=== PATIENT | female | born 1980 | race Caucasian/White ===

== ENCOUNTER → 2017-11-19 09:45 | Outpatient (CLI) | payer OTHER, SELFPAY ==
[2017-11-19 10:53] LABS: Rheumatoid Factor < 10.0 IU/mL (<15)
[2017-11-19 10:58] LABS: Homocysteine 6.6 umol/L (3.2-10.7)
[2017-11-19 11:00] LABS: Vitamin D,25 Hydroxy 16.6 ng/mL (29.95-100.01)
[2017-11-19 11:02] LABS: Hemoglobin A1c 5.6 % (4.2-6.3)
[2017-11-21 16:10] LABS: Albumin 3.7 g/dL (2.9-4.4); Albumin, Ur 14.3 % (.); Alpha-1-Globulin, Ur 5.5 % (.); Alpha-1-Globulins 0.2 g/dL (0.0-0.4); Alpha-2-Globulins 0.8 g/dL (0.4-1.0); Beta Globulin, Ur 29.1 % (.); Cytoplasmic Ab (C-ANCA) <1:20 titer (Neg:<1:20); Gamma Globulin 0.9 g/dL (0.4-1.8); Gamma Globulin, Ur 35.2 % (.); Immunoglobulin A 241 mg/dL (87-352); Immunoglobulin G 765 mg/dL (700-1600); Immunoglobulin M 104 mg/dL (26-217); M-Spike, Ur % Not Observed % (Not Observed); PROEL- TOTAL PROTEIN 6.9 g/dL (6.0-8.5); Total Protein, Ur 4.2 mg/dL (Not Estab.)
[2017-11-22 14:16] LABS: SJOGREN'S Anti-SS-A test < 0.2 AI (0.0-0.9); SJOGREN'S Anti-SS-B test < 0.2 AI (0.0-0.9)
[2017-11-23 11:24] LABS: ANTINUCLEAR ANTIBODIES DIRECT Negative (Negative); Methylmalonic Acid Bld 250 nmol/L (0-378)
[2017-11-23 11:30] LABS: Perinuclear Ab (P-ANCA) <1:20 titer (Neg:<1:20)
== END ==
PROVIDERS: Family Provider Family Medicine; PCP Family Medicine; Visit Provider Psychiatry & Neurology Neurology
DX: E11.40 Type 2 diabetes mellitus with diabetic neuropathy, unspecified (principal); E53.8 Deficiency of other specified B group vitamins
CPT/HCPCS: 36415; 82306; 82784; 83036; 83090; 83921; 84165; 84166; 86038; 86235; 86256; 86334; 86335; 86431

== ENCOUNTER → 2017-11-26 07:47 | Outpatient (CLI) | payer OTHER, SELFPAY ==
--- NOTE | 2017-11-26 10:13 | NEURO_ITS ---
NCS and/or EMG Patient Report Ordering Doctor: Leeann Caban DATE OF SERVICE: 11/26/17 This is a bilateral lower extremity nerve conduction study in the right lower extremity EMG performed on this 37-year-old female with intermittent pain in her entire right leg circumferentially present for approximately 1 year. There is no positional component. The symptoms do not awaken her from sleep and are currently absent. Bilateral lower extremity nerve conduction studies performed demonstrating normal sural sensory responses bilaterally, normal common peroneal motor responses bilaterally and normal tibial motor responses bilaterally. The tibial and common peroneal F-wave responses are symmetrically preserved and the tibial H reflex responses are symmetrically preserved but mildly low amplitude. Right lower extremity needle electromyography is performed. Muscles evaluated included the extensor digitorum brevis, abductor hallucis, medial gastrocnemius , anterior tibialis, vastus lateralis and vastus medialis muscles. All muscles demonstrated normal insertional activity with absence of pathologic spontaneous activity. Motor unit potential recruitment pattern and amplitude was normal in all muscles tested. Impression: This is a normal nerve conduction study of the bilateral lower extremities and EMG of the right lower extremity. H reflex tubes are reduced however this is a nonspecific finding.
== END ==
PROVIDERS: Family Provider Family Medicine; PCP Family Medicine; Visit Provider Psychiatry & Neurology Neurology
DX: G62.9 Polyneuropathy, unspecified (principal); R20.0 Anesthesia of skin
CPT/HCPCS: 95886; 95910

== ENCOUNTER → 2017-11-28 16:50 | Outpatient (CLI) | payer OTHER, SELFPAY ==
--- NOTE | 2017-11-28 17:00 | MRI_ITS ---
STUDY: MRI CERVICAL SPINE WITH AND WITHOUT CONTRAST REASON FOR EXAM: Female, 37 years old. Numbness, pins and needles and itching in bilateral legs x 1 year. Family history of MS. TECHNIQUE: Standardized fat and water weighted pulse sequences were obtained in the sagittal and axial following I.V. administration of 7 ml of Gadavist contrast material. COMPARISON: None FINDINGS: Normal foramen magnum and brainstem-cervical cord junction. Normal craniovertebral junction. Normal anterior atlantoaxial articulation. Normal odontoid process. Normal cervical lordosis. Normal vertebral bodies and posterior osseous elements. C2-3: Normal endplates. Normal disc height, signal and morphology. Normal central canal and intervertebral neural foramina. C3-4: Normal endplates. Normal disc height, signal and morphology. Normal central canal and intervertebral neural foramina. C4-5: Normal endplates. Normal disc height, signal and morphology. Normal central canal and intervertebral neural foramina. C5-6: Normal endplates. Normal disc height, signal and morphology. Normal central canal and intervertebral neural foramina. C6-7: Normal endplates. Normal disc height, signal and morphology. Normal central canal and intervertebral neural foramina. C7-T1: Normal endplates. Normal disc height, signal and morphology. Normal central canal and intervertebral neural foramina. Normal cervical cord. There are enlarged bilateral cervical lymph nodes. MRI/Spine Cervical W/WO Contrast IMPRESSION: Normal unenhanced and enhanced MR examination of the cervical spine. Bilateral neck lymphadenopathy. Electronically Signed: Billy Allen MD at 17:10 EDT Tel , Service support ,
--- NOTE | 2017-11-28 17:30 | MRI_ITS ---
MR Brain WO/W Contrast INDICATION: Abnormal sensation and tingling left side, hyper-reflexia.Numbness, pins and needles and itching in bilateral legs x 1 year. Family history of MS COMPARISON: None TECHNIQUE: Multiplanar multisequence MRI examination of the brain without and with IV contrast. 1.5 mL of Gadavist was given intravenously.. FINDINGS: There is no evidence of restricted diffusion to suggest acute ischemia/infarction. Ventricular system is normal in size and symmetric. Cortical sulci, sylvian fissures, and basal cisterns are well seen. Snow-white matter junction is normal. Midline structures and craniocervical junction are normal. The cerebellopontine angles are normal and symmetric. Supra-and infratentorial brain parenchyma demonstrates normal signal. There is no evidence of parenchymal microhemorrhage, mass effect or midline shift, or abnormal extra-axial collection. After contrast administration, there is no abnormal parenchymal or extra-axial enhancement identified. Flow-voids of the [place] vascularity are well seen. The paranasal sinuses and mastooid air cells are clear. Sagittal FLAIR sequence demonstrates multiple prominent bilateral cervical lymph nodes. MRI/Brain W/WO Contrast IMPRESSION: Normal MRI examination of the brain. Multiple mildly prominent bilateral cervical lymph nodes are incidentally noted, please correlate with physical exam. at [id number] Reported and signed by: Kellie Baez MD Electronically Signed: Kellie Baez MD at 23:56 EDT Tel , Service support ,
== END ==
PROVIDERS: Family Provider Family Medicine; PCP Family Medicine; Visit Provider Psychiatry & Neurology Neurology
DX: R29.2 Abnormal reflex (principal); R20.2 Paresthesia of skin; R29.818 Other symptoms and signs involving the nervous system; Z82.0 Family history of epilepsy and other diseases of the nervous system; R59.0 Localized enlarged lymph nodes
CPT/HCPCS: 70553; 72156; A9585

== ENCOUNTER → 2017-12-02 15:34 | Outpatient (CLI) | payer OTHER, SELFPAY ==
[2017-12-02 18:16] LABS: Absolute Lymphocyte Count 2.39 X10^3/ul (0.83-4.51); Absolute Neutrophil Count 5.2 X10^3/uL (2.0-7.7); Basophil# 0.03 X10^3/uL; Basophil% 0.4 % (0-1); Eosinophil# 0.22 X10^3/uL; Eosinophils% 2.6 % (0-5); Hematocrit 44.3 % (37-47); Hemoglobin 14.8 g/dl (12.0-15.0); Lymphocyte # 2.39 X10^3/ul (4.0); Lymphocyte % 28.1 % (19-41); Mean Corp Hgb Conc 33.4 g/gl (32-36); Mean Corpuscular Hgb 29.4 pg (27.0-32.0); Mean Corpuscular Volume 88.1 fL (81-99); Mean Platelet Vol. 11.2 fl (6.2-12.0); Monocyte# 0.65 X10^3/uL; Monocyte% 7.6 % (0-10); Neutrophil % 61.1 % (47-70); Platelet Count 358 K/mm3 (150-450); RBC Distribution Width CV 12.8 % (11.6-14.6); RBC Distribution Width SD 40.9 fl (35.1-43.9); Red Blood Count 5.03 M/mm3 (4.2-5.4); White Blood Count 8.5 K/mm3 (4.4-11.0)
[2017-12-02 18:21] LABS: POSITIVE COUNT NO; POSITIVE DIFFERENTIAL NO; POSITIVE MORPHOLOGY NO
[2017-12-02 20:23] LABS: Internal QC Validated? YES +Cl - CLEAR BKGD; Monotest Negative (Negative); Record Kit Lot#, Mono 13171517
== END ==
PROVIDERS: Family Provider Family Medicine; PCP Family Medicine; Visit Provider Family Medicine
DX: R59.0 Localized enlarged lymph nodes (principal)
CPT/HCPCS: 36415; 85025; 86308

== ENCOUNTER → 2018-02-24 16:23 | Outpatient (CLI) | payer OTHER, SELFPAY ==
--- NOTE | 2018-02-24 16:26 | US_ITS ---
STUDY: NECK SOFT TISSUE ULTRASOUND REASON FOR EXAM: Female, 37 years old. Cervical lymph nodes TECHNIQUE: Ultrasound evaluation of the thyroid was performed with real-time and static arias-scale imaging. COMPARISON: None. FINDINGS: There are several lateral right-sided lymph nodes measuring 0.9 to 1.7 cm. There is a left-sided lymph node measuring 9 mm. US/Head/Neck Soft Tissue IMPRESSION: There are several cervical lymph nodes noted. Electronically Signed: Tl De Santiago DO at 19:06 EDT Tel [phone], Service support ,
== END ==
PROVIDERS: Family Provider Family Medicine; PCP Family Medicine; Visit Provider Family Medicine
DX: R59.0 Localized enlarged lymph nodes (principal)
CPT/HCPCS: 76536

== ENCOUNTER → 2018-08-12 15:13 | Outpatient (CLI) | payer OTHER, SELFPAY ==
[2018-07-11 10:05] VITALS: BMI 33.9
--- NOTE | 2018-08-12 15:16 | RAD_ITS ---
STUDY: X-RAY - RIGHT HAND, ATTENTION RIGHT THUMB. REASON FOR EXAM: Female, 37 years old. Increasing pain at the base of the right. TECHNIQUE: 3 view(s) of the finger were obtained. COMPARISON: None. FINDINGS: Normal metacarpal head. Normal metacarpophalangeal joint. Normal proximal phalanx. Normal distal phalanx. Subluxation at the first carpometacarpal joint. Normal distal interphalangeal joint. RAD/Finger(s) Min 2 Views IMPRESSION: Subluxation at the first carpal metacarpal joint. Electronically Signed: Gigi Bailey MD at 9:37 EST Tel [phone], Service support ,
== END ==
PROVIDERS: Family Provider Family Medicine; PCP Family Medicine; Referring Provider Family Medicine; Visit Provider Family Medicine
DX: M79.644 Pain in right finger(s) (principal)
CPT/HCPCS: 73140

== ENCOUNTER → 2018-08-27 16:11 | Outpatient (CLI) | payer OTHER, SELFPAY ==
[2018-07-11 10:05] VITALS: BMI 33.9
--- NOTE | 2018-08-27 16:15 | US_ITS ---
STUDY: THYROID ULTRASOUND REASON FOR EXAM: Female, 37 years old. Follow-up lymph nodes TECHNIQUE: Ultrasound evaluation of the thyroid was performed with real-time and static arias-scale imaging. COMPARISON: February 24, 2018. FINDINGS: Right-sided lymph nodes are noted ranging from 1.2-2 cm. These nodes demonstrate fatty joel. Left-sided lymph nodes are noted ranging from 1.4 to 2.3 cm. These nodes demonstrate fatty hilum. They may be reactive in nature. US/Head/Neck Soft Tissue IMPRESSION: Increasing left-sided cervical nodes. Electronically Signed: Tl De Santiago DO at 23:52 EST Tel [phone], Service support ,
== END ==
PROVIDERS: Family Provider Family Medicine; PCP Family Medicine; Referring Provider Surgery; Visit Provider Surgery
DX: R59.0 Localized enlarged lymph nodes (principal)
CPT/HCPCS: 76536

== ENCOUNTER → 2019-07-01 08:36 | Outpatient (CLI) | payer OTHER, SELFPAY ==
[2018-09-01 07:36] VITALS: BMI 33.9
[2019-07-01 11:15] LABS: Cholesterol 141 mg/dL (200); High Density Lipoprotein 38 mg/dL; Triglycerides 153 mg/dL; Very Low Density Lipoprotein 31 mg/dL (5-40)
== END ==
PROVIDERS: Family Provider Family Medicine; PCP Family Medicine; Referring Provider Family Medicine; Visit Provider Family Medicine
DX: Z13.220 Encounter for screening for lipoid disorders (principal)
CPT/HCPCS: 36415; 80061

== ENCOUNTER → 2020-01-05 09:37 | Outpatient (CLI) | payer OTHER, SELFPAY ==
[2018-09-01 07:36] VITALS: BMI 33.9
--- NOTE | 2020-01-05 09:43 | RAD_ITS ---
STUDY: X-RAY - LEFT ANKLE REASON FOR EXAM: Female, 39 years old. Rolled left ankle, fell in a hole 3 days ago TECHNIQUE: 3 view(s) of the ankle. COMPARISON: None. FINDINGS: Normal visualized distal tibia and fibula. Normal medial and lateral malleoli. Normal tibiotalar articulation and ankle mortise. Plantar spur. The visualized subtalar, talonavicular, calcaneocuboid and tarsal articulations are normal. Lateral soft tissue swelling. RAD/Ankle min 3 Views IMPRESSION: Lateral soft tissue swelling. Electronically Signed: Gigi Bailey, at 10:01 EDT , Service support ,
== END ==
PROVIDERS: PCP Family Medicine; Referring Provider Family Medicine; Visit Provider Family Medicine
DX: S93.402A Sprain of unspecified ligament of left ankle, initial encounter (principal); W17.2XXA Fall into hole, initial encounter
CPT/HCPCS: 73610

== ENCOUNTER → 2020-07-05 08:29 | Outpatient (CLI) | payer OTHER, SELFPAY ==
[2018-09-01 07:36] VITALS: BMI 33.9
[2020-07-05 10:35] LABS: Anion Gap 5 (5-15); BUN 10 mg/dL (7-18); BUN/Creat Ratio 11.7 RATIO (10-20); Calcium,Total 8.4 mg/dL (8.5-10.1); Chloride 106 mmol/L (98-107); Cholesterol 144 mg/dL (200); Creatinine, Serum 0.85 mg/dL (0.55-1.02); EST Glomerular Filtration Rate 79 mL/min (>60); Est Glom Filt Rate - Afr Amer 96 mL/min (>60); Glucose 100 mg/dL (74-106); High Density Lipoprotein 38 mg/dL; Sodium Level 137 mmol/L (136-145); Triglycerides 170 mg/dL; Very Low Density Lipoprotein 34 mg/dL (5-40)
== END ==
PROVIDERS: Family Medicine; PCP Family Medicine; Referring Provider Family Medicine; Visit Provider Family Medicine
DX: Z13.220 Encounter for screening for lipoid disorders (principal); R63.5 Abnormal weight gain
CPT/HCPCS: 36415; 80048; 80061

== ENCOUNTER → 2020-07-07 | Outpatient (CLI) | payer OTHER, SELFPAY ==
[2018-09-01 07:36] VITALS: BMI 33.9
[2020-07-12 15:15] LABS: HPV Reflexed? NOT INDICATED
== END | disposition home or self-care (01) ==
PROVIDERS: PCP Family Medicine; Referring Provider Family Medicine; Visit Provider Family Medicine
DX: Z12.4 Encounter for screening for malignant neoplasm of cervix (principal)
CPT/HCPCS: 88175; G0145

== ENCOUNTER → 2020-09-21 15:27 | Outpatient (CLI) | payer OTHER, SELFPAY ==
[2018-09-01 07:36] VITALS: BMI 33.9
[2020-09-21 17:24] LABS: Absolute Lymphocyte Count 2.34 X10^3/uL (0.83-4.51); Absolute Neutrophil Count 7.2 X10^3/uL (2.0-7.7); Basophil# 0.04 X10^3/uL; Basophil% 0.4 % (0-1); Eosinophil# 0.29 X10^3/uL; Eosinophils% 2.7 % (0-5); Hematocrit 43.7 % (37-47); Hemoglobin 14.1 g/dL (12.0-15.0); Lymphocyte # 2.34 X10^3/ul (4.0); Lymphocyte % 22.2 % (19-41); Mean Corp Hgb Conc 32.3 g/dL (32-36); Mean Corpuscular Hgb 28.3 pg (27.0-32.0); Mean Corpuscular Volume 87.6 fL (81-99); Mean Platelet Vol. 11.4 fl (6.2-12.0); Monocyte# 0.68 X10^3/uL; Monocyte% 6.4 % (0-10); NRBC Flagged by Analyzer 0 % (0-5); Neutrophil # 7.17 X10^3/uL (2.7-7.7); Neutrophil % 67.9 % (47-70); Platelet Count 412 K/mm3 (150-450); RBC Distribution Width CV 12.3 % (11.6-14.6); RBC Distribution Width SD 39.6 fl (35.1-43.9); Red Blood Count 4.99 M/mm3 (4.2-5.4); White Blood Count 10.6 K/mm3 (4.4-11.0)
[2020-09-21 17:43] LABS: Hemoglobin A1c 5.6 % (3.8-5.6)
[2020-09-21 17:45] LABS: Follicle Stimulating Hormone 7.8 mIU/mL; Luteinizing Hormone 3.6 mIU/mL; Prolactin 8.4 ng/mL; T4 Free Direct 0.94 ng/dL (0.76-1.46); Thyroid Stim Hormone (TSH) 2.14 uIU/mL (0.358-3.74)
[2020-09-25 02:00] LABS: Testosterone Free 3.8 pg/mL (0.0-4.2)
[2020-09-27 15:15] LABS: HIV - WCH Non-Reactive (Nonreactive); Hepatitis B Surface Antigen Non-Reactive (Nonreactive); Hepatitis C Antibody Non-Reactive (Nonreactive); Rubella IgG Reactive (Nonreactive)
[2020-09-28 03:03] LABS: Prenatal RPR NONREACTIVE (NONREACTIVE)
[2020-09-30 13:52] LABS: 17-Hydroxyprogesterone 29 ng/dL (.)
== END ==
PROVIDERS: PCP Family Medicine; Visit Provider Obstetrics & Gynecology
DX: N93.9 Abnormal uterine and vaginal bleeding, unspecified (principal)
CPT/HCPCS: 36415; 82627; 83001; 83002; 83036; 83498; 84146; 84402; 84439; 84443; 85025; 86703; 86762; 86803; 87340; 82626

== ENCOUNTER → 2021-04-04 12:14 | Outpatient (CLI) | payer OTHER, SELFPAY ==
[2018-09-01 07:36] VITALS: BMI 33.9
[2021-04-04 14:17] LABS: hCG Titer Quant., Serum < 1 mIU/mL (1-3)
== END ==
PROVIDERS: PCP Family Medicine; Referring Provider Obstetrics & Gynecology; Visit Provider Obstetrics & Gynecology
DX: N91.0 Primary amenorrhea (principal)
CPT/HCPCS: 36415; 84702

== ENCOUNTER → 2021-05-10 13:15 | Outpatient (CLI) | payer OTHER, SELFPAY ==
--- NOTE | 2021-05-10 13:17 | US_ITS ---
STUDY: ULTRASOUND OF THE FEMALE PELVIS - COMPLETE REASON FOR EXAM: Female, 40 years old. RLQ PAIN LMP: 04/19/2021. TECHNIQUE: Transvaginal TECHNICAL QUALITY: Adequate. COMPARISON: Comparison is made with prior study dated 09/26/2014. FINDINGS: The uterus is anteverted and is in a midline position. The uterus measures 8.3 cm x 5.7 cm x 4.1 cm. Normal uterine cervix. The endometrium measures 2.6 mm in thickness, and is hyperechoic. There is no demonstrated endometrial mass. There is no demonstrated myometrial mass. I.U.D. - The patient does not have an I.U.D. The right ovary is visualized. The right ovary measures 3.5 cm x 2.2 cm x 1.8 cm. A dominant follicle is seen within it measuring 1.6 cm x 1.1 cm x 1.4 cm. There is no visualized right adnexal mass or complex lesion. There is normal arterial and normal venous vascularity. The left ovary is visualized. The left ovary measures 3.7 cm x 3.4 cm x 3.4 cm. There are 2 dominant follicles within the ovary. The larger measures 1.7 size by 1.9 cm x 1.6 cm. There is no visualized left adnexal mass or complex lesion. There is normal arterial and normal venous vascularity. There is no fluid in the cul-de-sac. US/Transvaginal Non- IMPRESSION: Dominant follicles are seen in both ovaries. Electronically Signed: Gigi Bailey MD at 15:50 EDT , Service support ,
== END ==
PROVIDERS: PCP Family Medicine; Referring Provider Family Medicine; Visit Provider Family Medicine
DX: R10.31 Right lower quadrant pain (principal)
CPT/HCPCS: 76830

== ENCOUNTER → 2021-05-28 12:00 | Outpatient (CLI) | payer OTHER, SELFPAY ==
--- NOTE | 2021-05-28 12:10 | RAD_ITS ---
STUDY: X-RAY - PELVIS REASON FOR EXAM: Female, 40 years old. NONALLOPATHIC LESION TECHNIQUE: One view of the pelvis was obtained. COMPARISON: None. FINDINGS: There is a non-specific bowel gas pattern. Normal visualized soft tissue structures. Normal bilateral iliac wings, sacroiliac joints and visualized sacrum. Normal visualized bilateral superior and inferior pubic rami. Normal pubic symphysis. Normal ischial tuberosities. Normal visualized right femoral head. Normal right acetabulum. Normal right hip joint. Normal visualized left femoral head. Normal left acetabulum. Normal left hip joint. RAD/Pelvis 1 or 2 Views IMPRESSION: Normal x-ray examination of the pelvis. Electronically Signed: Dylan Reilly MD at 16:58 EDT Tel , Service support ,
== END ==
PROVIDERS: PCP Family Medicine; Referring Provider Family Medicine; Visit Provider Family Medicine
DX: M99.9 Biomechanical lesion, unspecified (principal)
CPT/HCPCS: 72170

== ENCOUNTER → 2021-08-02 16:45 | Outpatient (CLI) | payer OTHER, SELFPAY ==
[2021-08-02 17:29] LABS: Absolute Lymphocyte Count 2.49 X10^3/uL (0.83-4.51); Absolute Neutrophil Count 9.2 X10^3/uL (2.0-7.7); Basophil# 0.06 X10^3/uL; Basophil% 0.5 % (0-1); Eosinophil# 0.37 X10^3/uL; Eosinophils% 2.9 % (0-5); Hematocrit 41.6 % (37-47); Hemoglobin 13.5 g/dL (12.0-15.0); Lymphocyte # 2.49 X10^3/ul (0.83-4.51); Lymphocyte % 19.2 % (19-41); Mean Corp Hgb Conc 32.5 g/dL (32-36); Mean Corpuscular Hgb 27.1 pg (27.0-32.0); Mean Corpuscular Volume 83.5 fL (81-99); Mean Platelet Vol. 11.2 fl (6.2-12.0); Monocyte% 6.2 % (0-10); NRBC Flagged by Analyzer 0 % (0-5); Neutrophil # 9.17 X10^3/uL (2.7-7.7); Neutrophil % 70.7 % (47-70); Platelet Count 330 K/mm3 (150-450); RBC Distribution Width CV 13.7 % (11.6-14.6); RBC Distribution Width SD 41.9 fl (35.1-43.9); Red Blood Count 4.98 M/mm3 (4.2-5.4)
[2021-08-03 10:14] LABS: HIV - WCH Non-Reactive (Nonreactive); Hepatitis B Surface Antigen Non-Reactive (Nonreactive); Hepatitis C Antibody Non-Reactive (Nonreactive); Rubella IgG Reactive (Nonreactive); Syphilis Antibodies Non-reactive
[2021-08-06 22:06] LABS: Chlamydia By Nucleic Acid AMP Negative (Negative)
[2021-08-06 23:21] LABS: Gonococcus By Nucleic Acid AMP Negative (Negative)
== END ==
PROVIDERS: PCP Family Medicine; Visit Provider Obstetrics & Gynecology
DX: Z34.81 Encounter for supervision of other normal pregnancy, first trimester (principal); Z11.3 Encounter for screening for infections with a predominantly sexual mode of transmission
CPT/HCPCS: 36415; 85025; 86703; 86762; 86780; 86803; 87086; 87088; 87340; 87491; 87591

== ENCOUNTER 2021-09-10 15:54 | Outpatient (CLI) | payer OTHER, SELFPAY | END 2021-09-10 23:59 | disposition short-term general hospital (02) | LOC: WOBLAB 15:55 | PROVIDERS: PCP Family Medicine; Visit Provider Obstetrics & Gynecology | DX: O09.511 Supervision of elderly primigravida, first trimester (principal); Z3A.00 Weeks of gestation of pregnancy not specified | CPT/HCPCS: 36415 ==

== ENCOUNTER → 2021-12-24 | Outpatient (CLI) | payer OTHER, SELFPAY ==
[2021-12-24 16:50] LABS: Hematocrit 33.2 % (37-47); Mean Corp Hgb Conc 33.1 g/dL (32-36); Mean Corpuscular Hgb 29.3 pg (27.0-32.0); Mean Corpuscular Volume 88.3 fL (81-99); Mean Platelet Vol. 11.8 fl (6.2-12.0); Platelet Count 232 K/mm3 (150-450); RBC Distribution Width CV 12.9 % (11.6-14.6); RBC Distribution Width SD 41.5 fl (35.1-43.9); Red Blood Count 3.76 M/mm3 (4.2-5.4); White Blood Count 9.7 K/mm3 (4.4-11.0)
[2021-12-24 16:55] LABS: Glucose Challenge Gest 1H 50g 148 mg/dL (70-140)
== END | disposition home or self-care (01) ==
LOC: WOBLAB 15:50
PROVIDERS: PCP Family Medicine; Visit Provider Obstetrics & Gynecology
DX: Z34.82 Encounter for supervision of other normal pregnancy, second trimester (principal)
CPT/HCPCS: 36415; 82950; 85027

== ENCOUNTER → 2021-12-28 | Outpatient (CLI) | payer OTHER, SELFPAY ==
[2021-12-28 10:01] LABS: Glucose GTT-Gestation. Fasting 111 mg/dL (<105)
[2021-12-28 11:01] LABS: Glucose GTT-Gestational 1 Hr 181 mg/dL (<190)
[2021-12-28 11:47] LABS: Glucose GTT-Gestational 2 Hr 178 mg/dL (<165)
[2021-12-28 14:09] LABS: Glucose GTT-Gestational 3 Hr 128 L (<145)
== END | disposition home or self-care (01) ==
LOC: WOBLAB 08:41
PROVIDERS: PCP Family Medicine; Visit Provider Obstetrics & Gynecology
DX: O24.912 Unspecified diabetes mellitus in pregnancy, second trimester (principal)
CPT/HCPCS: 36415; 82951; 82952

== ENCOUNTER → 2022-02-21 | Outpatient (CLI) | payer OTHER, SELFPAY | END | disposition home or self-care (01) | LOC: LABSPEC 11:41 | PROVIDERS: PCP Family Medicine; Visit Provider Obstetrics & Gynecology | DX: Z36.85 Encounter for antenatal screening for Streptococcus B (principal) | CPT/HCPCS: 87081 ==

== ENCOUNTER 2022-03-07 07:18 | Inpatient (IN) | payer OTHER, SELFPAY ==
[2022-03-07] VITALS (9 sets, daily range): BP systolic 100–126; BP diastolic 56–70; PULSE 72–101; TEMP 36.4–36.9; O2SAT 96–98; BMI 37.6
[2022-03-07] MEDS: 0.9% Saline Lock 10 ML Syringe IV ×2 (09:15→13:40)
[2022-03-07] MEDS: miSOPROStol 25 MCG TABLET VAGINAL ×3 (09:24→22:19)
[2022-03-07 09:30] LABS: Absolute Lymphocyte Count 1.52 X10^3/uL (0.83-4.51); Absolute Neutrophil Count 7.9 X10^3/uL (2.0-7.7); Basophil# 0.04 X10^3/uL; Basophil% 0.4 % (0-1); Eosinophils% 7.2 % (0-5); Hematocrit 32.9 % (37-47); Hemoglobin 10.6 g/dL (12.0-15.0); Lymphocyte # 1.52 X10^3/ul (0.83-4.51); Lymphocyte % 13.8 % (19-41); Mean Corp Hgb Conc 32.2 g/dL (32-36); Mean Corpuscular Hgb 27.7 pg (27.0-32.0); Mean Corpuscular Volume 86.1 fL (81-99); Mean Platelet Vol. 11.9 fl (6.2-12.0); Monocyte# 0.69 X10^3/uL; Monocyte% 6.2 % (0-10); NRBC Flagged by Analyzer 0 % (0-5); Neutrophil % 71.5 % (47-70); Platelet Count 226 K/mm3 (150-450); RBC Distribution Width CV 13.6 % (11.6-14.6); RBC Distribution Width SD 42.2 fl (35.1-43.9); Red Blood Count 3.82 M/mm3 (4.2-5.4); White Blood Count 11.1 K/mm3 (4.4-11.0)
[2022-03-07 10:25] LABS: Bedside Glucose 97 mg/dL (74-106)
[2022-03-07 10:25] LABS: Bedside Glucose 99 mg/dL (74-106)
--- NOTE | 2022-03-07 10:43 | HP.PCM.OB_ITS ---
History and Physical Date of Admission: 03/07/22 Chief complaint: Induction of labor at term History present illness: 41-year-old G1, P0 at 38 weeks and 2 days with HILDA 03/19/2022 by LMP arrives for induction of labor at term with poorly controlled GDM A2 and AMA. Patient denies headache, visual changes, chest pain, shortness of breath, nausea vomit, right upper quadrant pain. Patient states good movement. is complicated by poorly controlled GDM A2, AMA, positive NIPT for trisomy 21 Obstetric history: G1: Current Past medical history: GDM A2 Medications: Levemir 15 units every morning Levemir 40 units every afternoon, vitamin, aspirin Past surgical history: Bilateral thumb surgery Allergies: Sulfa Social history: Denies smoking, alcohol use, drug use Family history: Denies history DVT or PE Review of systems: Besides above pertinent positives a full review of systems was performed and found to be negative Physical exam: Vitals: Blood pressure 120/70, pulse 90, temperature 98.1 ?F, SPO2 97% on room air General: Normal-appearing no acute distress HEENT: Normocephalic atraumatic no cervical of adenopathy Cardiac/respiratory: No successor muscles, nonlabored breathing Abdomen: Soft, nontender, gravid Extremities: No peripheral edema normal peripheral pulses Psych: Normal affect normal demeanor nonpressured speech Labs: White blood cell count 11.1 hemoglobin 10.6 Espino crit 32.9% platelets 226 Assessment plan: 41-year-old G1, P0 at 38 weeks and 2 days for induction of labor at term with poorly controlled GDM A2 and AMA Admit labor and delivery CEFM GBS negative Cytotec induction GDM A2: We will continue to monitor blood sugars and treat appropriately. Baby 4700 g on last ultrasound with MFM, understands option for elective and elects for induction of labor. Risk benefits alternatives discussed. AMA, trisomy 21 NIPT: Seen by [facility] followed regularly. For 3 to 5 cc of green top for chromosomal analysis to [facility]. Discussed case with hotel housekeeper Routine orders Anesthesia to see
[2022-03-07] MEDS: Lactated Ringers 1,000 ML 50 ML IV (13:36)
[2022-03-07 15:15] LABS: Bedside Glucose 115 mg/dL (74-106)
[2022-03-07 16:20] LABS: Bedside Glucose 84 mg/dL (74-106)
--- NOTE | 2022-03-07 18:12 | PN.OBGYN_ITS ---
Subjective Subjective No complaints. Comfortable not feeling contractions Objective Data Objective Data Vital Signs: Vital Signs Temp Pulse BP Pulse Ox 98.4 F 78 115/70 97 03/07/22 17:03 03/07/22 17:03 03/07/22 17:03 03/07/22 17:03 Weight: 240 lb 4.862 oz Body Mass Index (BMI) 37.6 Lab / Micro Data Result Diagrams: 03/07/22 09:15 Labs: Laboratory Results - last 24 hr 03/07/22 08:43: POC Glucose 97 03/07/22 09:15: WBC 11.1 H, RBC 3.82 L, Hgb 10.6 L, Hct 32.9 L, MCV 86.1, MCH 27.7, MCHC 32.2, RDW Std Deviation 42.2, RDW Coeff of P[place] 13.6, Plt Count 226, MPV 11.9, Immature Gran % (Auto) 0.900, Neut % (Auto) 71.5 H, Lymph % (Auto) 13.8 L, [place] % (Auto) 6.2, Eos % (Auto) 7.2 H, Baso % (Auto) 0.4, Absolute Neuts (auto) 7.9 H, Absolute Lymphs (auto) 1.52, Nucleated RBC % 0 03/07/22 09:15: Blood Type O POSITIVE, Antibody Screen NEGATIVE 03/07/22 10:01: POC Glucose 99 03/07/22 14:54: POC Glucose 115 H 03/07/22 15:53: POC Glucose 84 Micro: Microbiology 03/07/22 09:15 Nasal Secretion SARS-CoV-2 Antigen (Rapid) - Final Physical Exam Const alert, oriented x3, no apparent distress, average body habitus, healthy appearing and well nourished HEENT normocephalic Eyes PERRL Neck full ROM Resp normal respiratory effort, no retractions and no use of accessory muscles GI GI Narrative: Soft, nontender, gravid Narrative: Cervical exam: /3 Extremity normal to inspection, full ROM and no clubbing, cyanosis or edema Neuro moves all extremities, no focal motor deficits and no sensory deficits noted Assessment & Plan (1) : PLAN: Patient seen and examined. Not feeling contractions. Status post 2 doses of Cytotec. Based on contraction pattern will hold current dose of Cytotec for 2 hours and reevaluate toco. Pending toco will either repeat Cytotec versus Pitocin. We will continue to monitor blood sugars and treat appropriately.
[2022-03-07 18:16] LABS: Bedside Glucose 78 mg/dL (74-106)
[2022-03-07] MEDS: LACTATED RINGERS 500 ML 999 ML IV (19:01)
[2022-03-07 21:45] LABS: Bedside Glucose 92 mg/dL (74-106)
[2022-03-08] VITALS (66 sets, daily range): BP systolic 86–135; BP diastolic 45–81; PULSE 73–117; RESP 14–18; TEMP 36.1–38.7; O2SAT 95–99
[2022-03-08] MEDS: miSOPROStol 25 MCG TABLET VAGINAL (02:02)
[2022-03-08 02:26] LABS: Bedside Glucose 94 mg/dL (74-106)
[2022-03-08 06:41] LABS: Bedside Glucose 101 mg/dL (74-106)
[2022-03-08] MEDS: Lactated Ringers 1,000 ML 50 ML IV (07:50)
--- NOTE | 2022-03-08 08:12 | PN.OBGYN_ITS ---
Subjective Subjective Pt comfortable not feeling contractions Objective Data Objective Data Vital Signs: Vital Signs Temp Pulse BP Pulse Ox 98.0 F 87 110/60 98 03/08/22 07:23 03/08/22 07:23 03/08/22 07:23 03/08/22 07:23 Weight: 240 lb 4.862 oz Body Mass Index (BMI) 37.6 Intake & Output: Intake and Output for Last 24 Hours 03/06/22 03/07/22 03/08/22 23:59 23:59 23:59 Intake Total 1670.83 / 1670.83 615 / 615 Output Total 400 / 400 Balance 1670.83 / 1670.83 215 / 215 Lab / Micro Data Result Diagrams: 03/07/22 09:15 Labs: Laboratory Results - last 24 hr 03/07/22 08:43: POC Glucose 97 03/07/22 09:15: WBC 11.1 H, RBC 3.82 L, Hgb 10.6 L, Hct 32.9 L, MCV 86.1, MCH 27.7, MCHC 32.2, RDW Std Deviation 42.2, RDW Coeff of [place] 13.6, Plt Count 226, MPV 11.9, Immature Gran % (Auto) 0.900, Neut % (Auto) 71.5 H, Lymph % (Auto) 13.8 L, [place] % (Auto) 6.2, Eos % (Auto) 7.2 H, Baso % (Auto) 0.4, Absolute Neuts (auto) 7.9 H, Absolute Lymphs (auto) 1.52, Nucleated RBC % 0 03/07/22 09:15: Blood Type O POSITIVE, Antibody Screen NEGATIVE 03/07/22 10:01: POC Glucose 99 03/07/22 14:54: POC Glucose 115 H 03/07/22 15:53: POC Glucose 84 03/07/22 17:55: POC Glucose 78 03/07/22 21:23: POC Glucose 92 03/08/22 01:45: POC Glucose 94 03/08/22 05:59: POC Glucose 101 Micro: Microbiology 03/07/22 09:15 Nasal Secretion SARS-CoV-2 Antigen (Rapid) - Final Physical Exam Const alert, oriented x3, no apparent distress, average body habitus, healthy appearing and well nourished HEENT normocephalic Eyes PERRL Neck full ROM Resp normal respiratory effort, no retractions and no use of accessory muscles Narrative: cervical exam: 2-3/80/-3. AROM clear fluid Extremity normal to inspection, full ROM and no clubbing, cyanosis or edema Psych mental status grossly normal, affect normal, speech normal and activity/motor behavior normal Assessment & Plan (1) : PLAN: Pt seen and examined, CE improved. AROM clear fluid. Switch to pitocin.
[2022-03-08] MEDS: Oxytocin 30 units/NS 500 ml 30 UNITS/500 ML IV.SOLN IV (08:28)
[2022-03-08 10:30] LABS: Bedside Glucose 91 mg/dL (74-106)
[2022-03-08] MEDS: Ondansetron 4 MG/2 ML Vial IV (10:35)
[2022-03-08] MEDS: 0.9% Saline Lock 10 ML Syringe IV ×3 (10:35→19:58)
[2022-03-08] MEDS: proCHLORPERazine 10 MG/2 ML Vial IV (11:26)
[2022-03-08 11:50] LABS: Bedside Glucose 91 mg/dL (74-106)
[2022-03-08] MEDS: LACTATED RINGERS 500 ML 999 ML IV (11:56)
[2022-03-08] MEDS: fentaNYL-bupivacaine (epidural) 100 ML BAG EPIDURAL ×2 (12:58→18:23)
--- NOTE | 2022-03-08 12:58 | PCM.PN.OB ---
Subjective Subjective Patient just got her epidural Objective Data Objective Data Vital Signs: Vital Signs Temp Pulse BP Pulse Ox 97.0 F L 93 134/63 H 98 03/08/22 12:18 03/08/22 12:56 03/08/22 12:56 03/08/22 12:55 Weight: 240 lb 4.862 oz Body Mass Index (BMI) 37.6 Intake & Output: Intake and Output for Last 24 Hours 03/06/22 03/07/22 03/08/22 23:59 23:59 23:59 Intake Total 1670.83 / 1670.83 1278.90 / 1278.90 Output Total 1000 / 1000 Balance 1670.83 / 1670.83 278.90 / 278.90 Lab / Micro Data Result Diagrams: 03/07/22 09:15 Labs: Laboratory Results - last 24 hr 03/07/22 14:54: POC Glucose 115 H 03/07/22 15:53: POC Glucose 84 03/07/22 17:55: POC Glucose 78 03/07/22 21:23: POC Glucose 92 03/08/22 01:45: POC Glucose 94 03/08/22 05:59: POC Glucose 101 03/08/22 09:53: POC Glucose 91 03/08/22 11:15: POC Glucose 91 Micro: Microbiology 03/07/22 09:15 Nasal Secretion SARS-CoV-2 Antigen (Rapid) - Final Physical Exam Const alert, oriented x3, no apparent distress, average body habitus, healthy appearing and well nourished HEENT normocephalic and moist oral mucous membranes Eyes PERRL Neck full ROM Resp normal respiratory effort, no retractions and no use of accessory muscles Narrative: Cervical exam: /-2. Bedside ultrasound cephalic Neuro moves all extremities and no focal motor deficits Psych mental status grossly normal, affect normal, speech normal and activity/motor behavior normal Assessment & Plan (1) : PLAN: Patient seen and examined just got epidural. Cervical exam as above. Continue current management
[2022-03-08 13:25] LABS: Bedside Glucose 96 mg/dL (74-106)
[2022-03-08 13:25] LABS: Bedside Glucose 106 mg/dL (74-106)
[2022-03-08] MEDS: Lactated Ringers 1,000 ML 200 ML IV (16:05)
[2022-03-08 16:15] LABS: Bedside Glucose 94 mg/dL (74-106)
[2022-03-08 16:15] LABS: Bedside Glucose 91 mg/dL (74-106)
[2022-03-08 17:25] LABS: Bedside Glucose 90 mg/dL (74-106)
[2022-03-08 19:35] LABS: Bedside Glucose 85 mg/dL (74-106)
[2022-03-08 19:35] LABS: Bedside Glucose 89 mg/dL (74-106)
[2022-03-08 20:31] LABS: Bedside Glucose 94 mg/dL (74-106)
[2022-03-08] MEDS: Mag Hydrox/Al Hydrox/Simeth 30 ML UDC PO (20:31)
[2022-03-08] MEDS: Acetaminophen 500 MG Tablet PO (20:38)
[2022-03-08] MEDS: Sodium Citrate/Citric Acid 30 ML UDC PO (21:20)
--- NOTE | 2022-03-08 21:21 | PCM.PN.OB ---
Subjective Subjective Patient has progressed to complete and pushing for approximately 2 hours but has not progressed and station since pushing and baby remains at 0 Station with caput. Baby tolerating labor well until the past half hour. Patient has developed a fever of 101.7 with fever of approximately 100.7 about 30 minutes ago. No tachycardia noted. Patient is marginally controlled type A2 gestational diabetic and recent ultrasound at maternal- medicine showed a baby of nearly 11 pounds on ultrasound. We have discussed with the patient and her the diagnosis of early chorioamnionitis in the setting of poor progress and increasing stress and patient and her desire that we proceed with primary section for failure to progress and chorioamnionitis. Separately, testing cell free DNA showed approximately 91% chance of baby with Down syndrome; no heart anomalies have been seen by maternal- medicine during . We have discussed the risk and indications of a primary section including the possibly of bleeding, infection, and injury to surrounding structures such as bowel bladder and all questions have been answered. Objective Data Objective Data Vital Signs: Vital Signs Temp Pulse BP Pulse Ox 100.9 F H 117 H 98/52 L 96 03/08/22 21:15 03/08/22 21:16 03/08/22 21:09 03/08/22 21:16 Weight: 240 lb 4.862 oz Body Mass Index (BMI) 37.6 Intake & Output: Intake and Output for Last 24 Hours 03/06/22 03/07/22 03/08/22 23:59 23:59 23:59 Intake Total 1670.83 / 1670.83 2171.87 / 2171.87 Output Total 1700 / 1700 Balance 1670.83 / 1670.83 471.87 / 471.87 Lab / Micro Data Result Diagrams: 03/07/22 09:15 Labs: Laboratory Results - last 24 hr 03/07/22 21:23: POC Glucose 92 03/08/22 01:45: POC Glucose 94 03/08/22 05:59: POC Glucose 101 03/08/22 09:53: POC Glucose 91 03/08/22 11:15: POC Glucose 91 03/08/22 12:17: POC Glucose 96 03/08/22 13:05: POC Glucose 106 03/08/22 14:14: POC Glucose 91 03/08/22 15:54: POC Glucose 94 03/08/22 17:01: POC Glucose 90 03/08/22 18:16: POC Glucose 85 03/08/22 19:15: POC Glucose 89 03/08/22 20:12: POC Glucose 94 Micro: Microbiology 03/07/22 09:15 Nasal Secretion SARS-CoV-2 Antigen (Rapid) - Final
--- NOTE | 2022-03-08 21:26 | OP.PCM_ITS ---
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 Indication: This is a 41-year-old who presented at 38+ week gestation for Cytotec induction. Patient progressed to complete and pushing for approximately 2 hours but did not progressin dilation or station since pushing and baby remained at 0 Station with caput.? Baby tolerated labor well until the past half hour.? Patient developed a fever of 101.7 with fever of approximately 100.7 about 30 minutes ago.? No tachycardia noted.? Patient has been a marginally controlled type A2 gestational diabetic and recent ultrasound at maternal- medicine showed a baby of nearly 11 pounds on ultrasound.? We have discussed with the patient and her the diagnosis of early chorioamnionitis in the setting of poor progress and increasing stress and patient and her desire that we proceed with primary section for failure to progress and chorioamnionitis.? Separately, testing cell free DNA showed approximately 91% chance of the baby having Down syndrome; no heart anomalies have been seen by maternal- medicine during .? We have discussed the risk and indications of a primary section including the possibly of bleeding, infection, and injury to surrounding structures such as bowel bladder and all questions have been answered. Procedure: Patient was taken to the operating room where after spinal anesthesia was placed, the patient was prepped and draped in usual sterile fashion and a Winters catheter was placed. The abdomen was entered through the patient's prior Pfannenstiel incision and peritoneum was entered bluntly. After developing a bladder flap on the lower uterine segment a low transverse incision was made on the uterus and head was delivered onto the operative field the nose mouth and oropharynx were bulb suctioned. Subsequently a viable male infant was born with Apgars of 7/8. The was noted to cry move all extremities vigorously on the operative field. The umbilical cord was doubly clamped and ligated and handed to the nursery personnel who were present for the delivery. Placenta was delivered and noted to be 3 vessels and normal. Uterus was exteriorized and remaining placental tissue was removed. The uterus was then closed in 2 layers first with running locked 0 Vicryl suture followed by a second imbricating layer with 0 Vicryl suture. 0 Vicryl suture was then used in a horizontal mattress interrupted fashion to affect final hemostasis of the uterine incision line. Normal fallopian tubes and ovaries were visualized and the uterus was returned to the pelvis. Hemostasis was noted and rectus abdominis muscles were reapproximated in the midline with interrupted Number 0 Vicryl suture in a horizontal mattress fashion. Fascia was closed with running Number 1 PDS Strata fix suture. Subcutaneous tissue was irrigated with copious amounts of saline solution and then closed with running 3-0 Vicryl suture. Skin was closed with 4-0 monocryl suture in a running subcuticular fashion. Steri strips and a Mepilex dressing were placed across the incision. The patient tolerated the procedure well and was taken to the recovery room in satisfactory condition. Sponge, needle, and instrument counts were all reportedly correct. EBL was 750 cc. Ancef 3 gms IV was given prior to the procedure and gentamicin given just after the baby was delivered. Spicemen to Pathology: Placenta Complications: None Presentation: Positive for Vertex Amniotic Fluid Description: Clear Placental Delivery Description: Spontaneous Placenta Disposition: [facility] Specimen(s) Sent to Pathology: Placenta To [place] [facility] Path[facility] Cord Vessel Description: 3 Vessels Cord Entanglement: None Cord Gases: ABG and VBG Infant A Gender: Male (1 minute): 7 (5 minute): 8 Complications Risks of Surgery Discussed w/Patient: Bleeding, Infection and Injury to surrounding structure(s) including bowel and bladder Complications: None
[2022-03-08 21:41] LABS: Bedside Glucose 104 mg/dL (74-106)
[2022-03-08] MEDS: Oxytocin 30 units/NS 500 ml 30 UNITS/500 ML IV.SOLN 167 UNITS IV (22:40)
[2022-03-08] MEDS: Ketorolac 30 MG/ML Syringe IV (23:26)
--- NOTE | 2022-03-08 23:38 | PCM.NY.DEL ---
Delivery Attendance Service Date: 03/08/22 Service Time: 21:30 Asked to attend delivery by: OB and Nursing Reason for attendance: Maternal Condition (GDMA2) and - (Large baby expescted, and trisomy 21) Plan: - (to SCN) Handoff: Called to attend delivery secondary to FTP, a large baby expected as well as trisomy 21. Baby came out, blue, placed on stabilette and started to cry vigorously, pinking up, however had lots of mucus present, had difficulty controlling mucus and began having nasal flaring and subcostal retractions. Bulb suction performed and then CPAP started where baby responded well. NRP protocol followed. Baby required up to 40%, and has been on RA since approximately 20 mol. Trial off CPAP led to deep retractions and mucus buildup. Baby then placed on REGI and has been doing very well. OG had been placed and approx 30cc of mucus withdrawn. Based on sepsis calculator and clinical status, BCx to be sent and amp/gent started. Cord BCx drawn. Maternal temp was 101.7 prior to delivery, and baby's was the same after delivery.as well as genetic labs for trisomy 21. Baby will need peripheral genetic labs drawn. Apgars 7-8. To SCN for respiratory support as well as IVF and antibiotics. Course of Delivery Was resuscitation required: Yes Interventions at Delivery: Bulb Suction, CPAP, ET Suction and Tactile Stimulation Physical Exam Apgars/Vital Signs/Weight: Weight: 109 kg General: Strong cry and Responsive to exam Head: Caput succedaneum Eyes: Red reflex bilaterally and - (upslanting) Oropharynx: Palate intact Lungs: Subcostal retractions and Moist Cardiovascular: Regular rate and rhythm (tachy initially likely secondary to maternal fewver/baby fever) and No murmurs Genitalia, Male: Penis normal and Testicles descended bilaterally Neurological: - (decreased tone globally) Skin: Normal color General Weight: 109 kg strong cry and responsive to exam HEENT Yes caput succedaneum Eyes: red reflex present bilaterally Cardiovascular Yes regular rate, regular rhythm and no murmurs Abdomen soft to palpation Musculoskeletal hip exam without evidence of dislocation or instability Neurological fair tone Skin normal color
--- NOTE | 2022-03-08 23:55 | HP.PCM.NUR_ITS ---
Subjective Subjective: Called to attend delivery secondary to FTP, a large baby expected as well as trisomy 21. Baby came out, blue, placed on stabilette and started to cry vigorously, pinking up, however had lots of mucus present, had difficulty controlling mucus and began having nasal flaring and subcostal retractions. Bulb suction performed and then CPAP started where baby responded well. NRP protocol followed. Baby required up to 40%, and has been on RA since approximately 20 mol. Trial off CPAP led to deep retractions and mucus buildup. Baby then placed on REGI cannula and has been doing very well. OG had been placed and approx 30cc of mucus withdrawn. Based on sepsis calculator and clinical status, BCx to be sent and amp/gent started. Cord BCx drawn. Maternal temp was 101.7 prior to delivery, and baby's was the same after delivery. Genetic labs for trisomy 21 drawn from cord as well as will need peripheral genetic labs drawn. Apgars 7-8. To SCN for respiratory support as well as IVF and antibiotics. Objective Objective Data: 03/08/22 01:49 03/08/22 01:49 03/08/22 01:48 Temperature Temperature Source Temporal Pulse Rate 80 Respiratory Rate Respiratory Depth Respiratory Pattern Blood Pressure 119/81 H Blood Pressure Mean BP Systolic 119 BP Diastolic 81 Blood Pressure Source Blood Pressure Position Blood Pressure Location Baseline BP Pulse Ox Oxygen Delivery Method 03/08/22 01:49 03/08/22 01:49 03/08/22 01:48 Temperature 97.8 F Temperature Source Pulse Rate 76 Respiratory Rate Respiratory Depth Respiratory Pattern Blood Pressure Blood Pressure Mean BP Systolic BP Diastolic Blood Pressure Source Blood Pressure Position Blood Pressure Location Baseline BP Pulse Ox 97 Oxygen Delivery Method 03/08/22 05:55 03/08/22 05:55 03/08/22 05:55 Temperature Temperature Source Temporal Pulse Rate 78 Respiratory Rate Respiratory Depth Respiratory Pattern Blood Pressure 118/65 Blood Pressure Mean BP Systolic 118 BP Diastolic 65 Blood Pressure Source Blood Pressure Position Blood Pressure Location Baseline BP Pulse Ox Oxygen Delivery Method 03/08/22 05:55 03/08/22 05:55 03/08/22 07:23 Temperature 97.8 F Temperature Source Pulse Rate Respiratory Rate Respiratory Depth Respiratory Pattern Blood Pressure 110/60 Blood Pressure Mean BP Systolic 110 BP Diastolic 60 Blood Pressure Source Blood Pressure Position Blood Pressure Location Baseline BP Pulse Ox 98 Oxygen Delivery Method 03/08/22 07:23 03/08/22 07:23 03/08/22 07:23 Temperature Temperature Source Temporal Pulse Rate 87 Respiratory Rate Respiratory Depth Respiratory Pattern Blood Pressure Blood Pressure Mean BP Systolic BP Diastolic Blood Pressure Source Blood Pressure Position Blood Pressure Location Baseline BP Pulse Ox 98 Oxygen Delivery Method 03/08/22 07:23 03/08/22 08:29 03/08/22 08:29 Temperature 98.0 F Temperature Source Temporal Pulse Rate Respiratory Rate Respiratory Depth Respiratory Pattern Blood Pressure 133/75 H Blood Pressure Mean BP Systolic 133 BP Diastolic 75 Blood Pressure Source Blood Pressure Position Blood Pressure Location Baseline BP Pulse Ox Oxygen Delivery Method 03/08/22 08:29 03/08/22 08:29 03/08/22 09:54 Temperature 97.4 F L Temperature Source Temporal Pulse Rate 84 Respiratory Rate Respiratory Depth Respiratory Pattern Blood Pressure Blood Pressure Mean BP Systolic BP Diastolic Blood Pressure Source Blood Pressure Position Blood Pressure Location Baseline BP Pulse Ox Oxygen Delivery Method 03/08/22 09:55 03/08/22 09:55 03/08/22 09:54 Temperature 97.9 F Temperature Source Pulse Rate 73 Respiratory Rate Respiratory Depth Respiratory Pattern Blood Pressure 125/74 H Blood Pressure Mean BP Systolic 125 BP Diastolic 74 Blood Pressure Source Blood Pressure Position Blood Pressure Location Baseline BP Pulse Ox Oxygen Delivery Method 03/08/22 11:02 03/08/22 11:02 03/08/22 11:02 Temperature Temperature Source Temporal Pulse Rate 85 Respiratory Rate Respiratory Depth Respiratory Pattern Blood Pressure 122/68 H Blood Pressure Mean BP Systolic 122 BP Diastolic 68 Blood Pressure Source Blood Pressure Position Blood Pressure Location Baseline BP Pulse Ox Oxygen Delivery Method 03/08/22 11:02 03/08/22 12:18 03/08/22 12:19 Temperature 97.7 F L Temperature Source Temporal Pulse Rate Respiratory Rate Respiratory Depth Respiratory Pattern Blood Pressure 119/59 L Blood Pressure Mean BP Systolic 119 BP Diastolic 59 Blood Pressure Source Blood Pressure Position Blood Pressure Location Baseline BP Pulse Ox Oxygen Delivery Method 03/08/22 12:19 03/08/22 12:18 03/08/22 12:29 Temperature 97.0 F L Temperature Source Pulse Rate 96 Respiratory Rate Respiratory Depth Respiratory Pattern Blood Pressure 133/66 H Blood Pressure Mean BP Systolic 133 BP Diastolic 66 Blood Pressure Source Blood Pressure Position Blood Pressure Location Baseline BP Pulse Ox Oxygen Delivery Method 03/08/22 12:29 03/08/22 12:29 03/08/22 12:35 Temperature Temperature Source Pulse Rate 88 Respiratory Rate Respiratory Depth Respiratory Pattern Blood Pressure 135/75 H Blood Pressure Mean BP Systolic 135 BP Diastolic 75 Blood Pressure Source Blood Pressure Position Blood Pressure Location Baseline BP Pulse Ox 98 Oxygen Delivery Method 03/08/22 12:35 03/08/22 12:34 03/08/22 12:40 Temperature Temperature Source Pulse Rate 89 Respiratory Rate Respiratory Depth Respiratory Pattern Blood Pressure 124/70 H Blood Pressure Mean BP Systolic 124 BP Diastolic 70 Blood Pressure Source Blood Pressure Position Blood Pressure Location Baseline BP Pulse Ox 98 Oxygen Delivery Method 03/08/22 12:40 03/08/22 12:39 03/08/22 12:44 Temperature Temperature Source Pulse Rate 88 91 Respiratory Rate Respiratory Depth Respiratory Pattern Blood Pressure Blood Pressure Mean BP Systolic BP Diastolic Blood Pressure Source Blood Pressure Position Blood Pressure Location Baseline BP Pulse Ox 98 Oxygen Delivery Method 03/08/22 12:44 03/08/22 12:45 03/08/22 12:45 Temperature Temperature Source Pulse Rate 93 Respiratory Rate Respiratory Depth Respiratory Pattern Blood Pressure 127/80 H Blood Pressure Mean BP Systolic 127 BP Diastolic 80 Blood Pressure Source Blood Pressure Position Blood Pressure Location Baseline BP Pulse Ox 98 Oxygen Delivery Method 03/08/22 12:49 03/08/22 12:49 03/08/22 12:55 Temperature Temperature Source Pulse Rate 87 86 Respiratory Rate Respiratory Depth Respiratory Pattern Blood Pressure Blood Pressure Mean BP Systolic BP Diastolic Blood Pressure Source Blood Pressure Position Blood Pressure Location Baseline BP Pulse Ox 98 Oxygen Delivery Method 03/08/22 12:55 03/08/22 12:56 03/08/22 12:56 Temperature Temperature Source Pulse Rate 93 Respiratory Rate Respiratory Depth Respiratory Pattern Blood Pressure 134/63 H Blood Pressure Mean BP Systolic 134 BP Diastolic 63 Blood Pressure Source Blood Pressure Position Blood Pressure Location Baseline BP Pulse Ox 98 Oxygen Delivery Method 03/08/22 13:00 03/08/22 13:00 03/08/22 13:05 Temperature Temperature Source Pulse Rate 88 86 Respiratory Rate Respiratory Depth Respiratory Pattern Blood Pressure Blood Pressure Mean BP Systolic BP Diastolic Blood Pressure Source Blood Pressure Position Blood Pressure Location Baseline BP Pulse Ox 98 Oxygen Delivery Method 03/08/22 13:05 03/08/22 13:06 03/08/22 13:06 Temperature 97.7 F L Temperature Source Temporal Pulse Rate Respiratory Rate Respiratory Depth Respiratory Pattern Blood Pressure Blood Pressure Mean BP Systolic BP Diastolic Blood Pressure Source Blood Pressure Position Blood Pressure Location Baseline BP Pulse Ox 96 Oxygen Delivery Method 03/08/22 13:10 03/08/22 13:10 03/08/22 13:15 Temperature Temperature Source Pulse Rate 82 94 Respiratory Rate Respiratory Depth Respiratory Pattern Blood Pressure Blood Pressure Mean BP Systolic BP Diastolic Blood Pressure Source Blood Pressure Position Blood Pressure Location Baseline BP Pulse Ox 97 Oxygen Delivery Method 03/08/22 13:15 03/08/22 13:20 03/08/22 13:20 Temperature Temperature Source Pulse Rate 92 Respiratory Rate Respiratory Depth Respiratory Pattern Blood Pressure Blood Pressure Mean BP Systolic BP Diastolic Blood Pressure Source Blood Pressure Position Blood Pressure Location Baseline BP Pulse Ox 97 97 Oxygen Delivery Method 03/08/22 13:25 03/08/22 13:25 03/08/22 13:30 Temperature Temperature Source Pulse Rate 92 Respiratory Rate Respiratory Depth Respiratory Pattern Blood Pressure 96/55 L Blood Pressure Mean BP Systolic 96 BP Diastolic 55 Blood Pressure Source Blood Pressure Position Blood Pressure Location Baseline BP Pulse Ox 98 Oxygen Delivery Method 03/08/22 13:30 03/08/22 13:30 03/08/22 13:30 Temperature Temperature Source Pulse Rate 93 101 H Respiratory Rate Respiratory Depth Respiratory Pattern Blood Pressure Blood Pressure Mean BP Systolic BP Diastolic Blood Pressure Source Blood Pressure Position Blood Pressure Location Baseline BP Pulse Ox 99 Oxygen Delivery Method 03/08/22 13:35 03/08/22 13:35 03/08/22 13:40 Temperature Temperature Source Pulse Rate 98 99 Respiratory Rate Respiratory Depth Respiratory Pattern Blood Pressure Blood Pressure Mean BP Systolic BP Diastolic Blood Pressure Source Blood Pressure Position Blood Pressure Location Baseline BP Pulse Ox 99 Oxygen Delivery Method 03/08/22 13:40 03/08/22 13:45 03/08/22 13:45 Temperature Temperature Source Pulse Rate 97 Respiratory Rate Respiratory Depth Respiratory Pattern Blood Pressure Blood Pressure Mean BP Systolic BP Diastolic Blood Pressure Source Blood Pressure Position Blood Pressure Location Baseline BP Pulse Ox 97 97 Oxygen Delivery Method 03/08/22 13:50 03/08/22 13:50 03/08/22 13:55 Temperature Temperature Source Pulse Rate 99 97 Respiratory Rate Respiratory Depth Respiratory Pattern Blood Pressure Blood Pressure Mean BP Systolic BP Diastolic Blood Pressure Source Blood Pressure Position Blood Pressure Location Baseline BP Pulse Ox 96 Oxygen Delivery Method 03/08/22 13:55 03/08/22 14:00 03/08/22 14:00 Temperature Temperature Source Pulse Rate 98 Respiratory Rate Respiratory Depth Respiratory Pattern Blood Pressure 93/52 L Blood Pressure Mean BP Systolic 93 BP Diastolic 52 Blood Pressure Source Blood Pressure Position Blood Pressure Location Baseline BP Pulse Ox 96 Oxygen Delivery Method 03/08/22 14:00 03/08/22 14:00 03/08/22 14:05 Temperature Temperature Source Pulse Rate 98 98 Respiratory Rate Respiratory Depth Respiratory Pattern Blood Pressure Blood Pressure Mean BP Systolic BP Diastolic Blood Pressure Source Blood Pressure Position Blood Pressure Location Baseline BP Pulse Ox 96 Oxygen Delivery Method 03/08/22 14:05 03/08/22 14:10 03/08/22 14:10 Temperature Temperature Source Pulse Rate 98 Respiratory Rate Respiratory Depth Respiratory Pattern Blood Pressure Blood Pressure Mean BP Systolic BP Diastolic Blood Pressure Source Blood Pressure Position Blood Pressure Location Baseline BP Pulse Ox 96 95 Oxygen Delivery Method 03/08/22 14:14 03/08/22 14:14 03/08/22 14:31 Temperature 97.6 F L Temperature Source Temporal Pulse Rate Respiratory Rate Respiratory Depth Respiratory Pattern Blood Pressure 89/51 L Blood Pressure Mean BP Systolic 89 BP Diastolic 51 Blood Pressure Source Blood Pressure Position Blood Pressure Location Baseline BP Pulse Ox Oxygen Delivery Method 03/08/22 14:31 03/08/22 14:42 03/08/22 14:42 Temperature Temperature Source Pulse Rate 97 88 Respiratory Rate Respiratory Depth Respiratory Pattern Blood Pressure 122/66 H Blood Pressure Mean BP Systolic 122 BP Diastolic 66 Blood Pressure Source Blood Pressure Position Blood Pressure Location Baseline BP Pulse Ox Oxygen Delivery Method 03/08/22 15:00 03/08/22 15:00 03/08/22 15:13 Temperature Temperature Source Temporal Pulse Rate 88 Respiratory Rate Respiratory Depth Respiratory Pattern Blood Pressure 105/58 L Blood Pressure Mean BP Systolic 105 BP Diastolic 58 Blood Pressure Source Blood Pressure Position Blood Pressure Location Baseline BP Pulse Ox Oxygen Delivery Method 03/08/22 15:13 03/08/22 15:29 03/08/22 15:29 Temperature 97.6 F L Temperature Source Pulse Rate 100 Respiratory Rate Respiratory Depth Respiratory Pattern Blood Pressure 117/61 Blood Pressure Mean BP Systolic 117 BP Diastolic 61 Blood Pressure Source Blood Pressure Position Blood Pressure Location Baseline BP Pulse Ox Oxygen Delivery Method 03/08/22 15:59 03/08/22 15:59 03/08/22 16:31 Temperature Temperature Source Temporal Pulse Rate 100 Respiratory Rate Respiratory Depth Respiratory Pattern Blood Pressure 129/66 H Blood Pressure Mean BP Systolic 129 BP Diastolic 66 Blood Pressure Source Blood Pressure Position Blood Pressure Location Baseline BP Pulse Ox Oxygen Delivery Method 03/08/22 16:32 03/08/22 16:32 03/08/22 16:31 Temperature 97.9 F Temperature Source Pulse Rate 95 Respiratory Rate Respiratory Depth Respiratory Pattern Blood Pressure Blood Pressure Mean BP Systolic BP Diastolic Blood Pressure Source Blood Pressure Position Blood Pressure Location Baseline BP Pulse Ox 97 Oxygen Delivery Method 03/08/22 17:00 03/08/22 17:00 03/08/22 17:29 Temperature Temperature Source Pulse Rate 96 Respiratory Rate Respiratory Depth Respiratory Pattern Blood Pressure 86/51 L 86/45 L Blood Pressure Mean BP Systolic 86 86 BP Diastolic 51 45 Blood Pressure Source Blood Pressure Position Blood Pressure Location Baseline BP Pulse Ox Oxygen Delivery Method 03/08/22 17:29 03/08/22 17:40 03/08/22 17:40 Temperature 98.9 F Temperature Source Temporal Pulse Rate 100 Respiratory Rate Respiratory Depth Respiratory Pattern Blood Pressure Blood Pressure Mean BP Systolic BP Diastolic Blood Pressure Source Blood Pressure Position Blood Pressure Location Baseline BP Pulse Ox Oxygen Delivery Method 03/08/22 17:41 03/08/22 17:41 03/08/22 17:45 Temperature Temperature Source Pulse Rate 117 H Respiratory Rate Respiratory Depth Respiratory Pattern Blood Pressure 118/62 Blood Pressure Mean BP Systolic 118 BP Diastolic 62 Blood Pressure Source Blood Pressure Position Blood Pressure Location Baseline BP Pulse Ox 97 Oxygen Delivery Method 03/08/22 17:45 03/08/22 18:00 03/08/22 18:00 Temperature Temperature Source Pulse Rate 108 H 110 H Respiratory Rate Respiratory Depth Respiratory Pattern Blood Pressure 133/68 H Blood Pressure Mean BP Systolic 133 BP Diastolic 68 Blood Pressure Source Blood Pressure Position Blood Pressure Location Baseline BP Pulse Ox Oxygen Delivery Method 03/08/22 18:29 03/08/22 18:29 03/08/22 18:33 Temperature Temperature Source Temporal Pulse Rate 105 H Respiratory Rate Respiratory Depth Respiratory Pattern Blood Pressure 129/72 H Blood Pressure Mean BP Systolic 129 BP Diastolic 72 Blood Pressure Source Blood Pressure Position Blood Pressure Location Baseline BP Pulse Ox Oxygen Delivery Method 03/08/22 18:33 03/08/22 19:00 03/08/22 19:00 Temperature 99.1 F Temperature Source Pulse Rate 102 H Respiratory Rate Respiratory Depth Respiratory Pattern Blood Pressure 132/72 H Blood Pressure Mean BP Systolic 132 BP Diastolic 72 Blood Pressure Source Blood Pressure Position Blood Pressure Location Baseline BP Pulse Ox Oxygen Delivery Method 03/08/22 19:02 03/08/22 19:02 03/08/22 20:06 Temperature 99.3 F H Temperature Source Temporal Pulse Rate Respiratory Rate Respiratory Depth Respiratory Pattern Blood Pressure 119/55 L Blood Pressure Mean BP Systolic 119 BP Diastolic 55 Blood Pressure Source Blood Pressure Position Blood Pressure Location Baseline BP Pulse Ox Oxygen Delivery Method 03/08/22 20:06 03/08/22 20:08 03/08/22 20:08 Temperature Temperature Source Pulse Rate 98 104 H Respiratory Rate Respiratory Depth Respiratory Pattern Blood Pressure Blood Pressure Mean BP Systolic BP Diastolic Blood Pressure Source Blood Pressure Position Blood Pressure Location Baseline BP Pulse Ox 97 Oxygen Delivery Method 03/08/22 20:06 03/08/22 20:06 03/08/22 20:36 Temperature 100.7 F H Temperature Source Temporal Temporal Pulse Rate Respiratory Rate Respiratory Depth Respiratory Pattern Blood Pressure Blood Pressure Mean BP Systolic BP Diastolic Blood Pressure Source Blood Pressure Position Blood Pressure Location Baseline BP Pulse Ox Oxygen Delivery Method 03/08/22 20:36 03/08/22 21:09 03/08/22 21:09 Temperature 101.7 F H Temperature Source Pulse Rate 110 H Respiratory Rate Respiratory Depth Respiratory Pattern Blood Pressure 98/52 L Blood Pressure Mean BP Systolic 98 BP Diastolic 52 Blood Pressure Source Blood Pressure Position Blood Pressure Location Baseline BP Pulse Ox Oxygen Delivery Method 03/08/22 21:15 03/08/22 21:16 03/08/22 21:16 Temperature Temperature Source Temporal Pulse Rate 117 H Respiratory Rate Respiratory Depth Respiratory Pattern Blood Pressure Blood Pressure Mean BP Systolic BP Diastolic Blood Pressure Source Blood Pressure Position Blood Pressure Location Baseline BP Pulse Ox 96 Oxygen Delivery Method 03/08/22 21:15 03/08/22 23:01 03/08/22 23:01 Temperature 100.9 F H Temperature Source Pulse Rate 93 Respiratory Rate 14 14 Respiratory Depth Normal Respiratory Pattern Blood Pressure 107/61 Blood Pressure Mean 76 BP Systolic BP Diastolic Blood Pressure Source Monitor Blood Pressure Position Semi-Fowlers Blood Pressure Location Left Arm Baseline BP 98/52 Pulse Ox 95 95 Oxygen Delivery Method Room Air Room Air 03/08/22 22:45 03/08/22 23:15 Temperature 99.7 F H Temperature Source Temporal Pulse Rate 99 86 Respiratory Rate 16 14 Respiratory Depth Respiratory Pattern Normal Blood Pressure 94/62 106/55 L Blood Pressure Mean 72 72 BP Systolic BP Diastolic Blood Pressure Source Monitor Monitor Blood Pressure Position Semi-Fowlers Semi-Fowlers Blood Pressure Location Left Arm Left Arm Baseline BP 98/52 98/52 Pulse Ox 96 95 Oxygen Delivery Method Room Air Room Air Weight: 109 kg Vital Signs Temp Pulse Resp BP Pulse Ox O2 Del Method 03/08/22 23:15 86 14 106/55 L 95 Room Air 03/08/22 22:45 99.7 F H 99 16 94/62 96 Room Air 03/08/22 23:01 14 95 Room Air 03/08/22 23:01 93 14 107/61 95 Room Air 03/08/22 21:15 100.9 F H 03/08/22 21:16 96 03/08/22 21:16 117 H 03/08/22 21:09 110 H 03/08/22 21:09 98/52 L 03/08/22 20:36 101.7 F H 03/08/22 20:06 100.7 F H 03/08/22 20:08 97 03/08/22 20:08 104 H 03/08/22 20:06 98 03/08/22 20:06 119/55 L 03/08/22 19:02 99.3 F H 03/08/22 19:00 102 H 03/08/22 19:00 132/72 H 03/08/22 18:33 99.1 F 03/08/22 18:29 105 H 03/08/22 18:29 129/72 H 03/08/22 18:00 110 H 03/08/22 18:00 133/68 H 03/08/22 17:45 108 H 03/08/22 17:45 118/62 03/08/22 17:41 97 03/08/22 17:41 117 H 03/08/22 17:40 98.9 F 03/08/22 17:29 100 03/08/22 17:29 86/45 L 03/08/22 17:00 96 03/08/22 17:00 86/51 L 03/08/22 16:31 97.9 F 03/08/22 16:32 97 03/08/22 16:32 95 03/08/22 15:59 100 03/08/22 15:59 129/66 H 03/08/22 15:29 100 03/08/22 15:29 117/61 03/08/22 15:13 97.6 F L 03/08/22 15:00 88 03/08/22 15:00 105/58 L 03/08/22 14:42 88 03/08/22 14:42 122/66 H 03/08/22 14:31 97 03/08/22 14:31 89/51 L 03/08/22 14:14 97.6 F L 03/08/22 14:10 95 03/08/22 14:10 98 03/08/22 14:05 96 03/08/22 14:05 98 03/08/22 14:00 96 03/08/22 14:00 98 03/08/22 14:00 98 03/08/22 14:00 93/52 L 03/08/22 13:55 96 03/08/22 13:55 97 03/08/22 13:50 96 03/08/22 13:50 99 03/08/22 13:45 97 03/08/22 13:45 97 03/08/22 13:40 97 03/08/22 13:40 99 03/08/22 13:35 99 03/08/22 13:35 98 03/08/22 13:30 101 H 03/08/22 13:30 99 03/08/22 13:30 93 03/08/22 13:30 96/55 L 03/08/22 13:25 98 03/08/22 13:25 92 03/08/22 13:20 97 03/08/22 13:20 92 03/08/22 13:15 97 03/08/22 13:15 94 03/08/22 13:10 97 03/08/22 13:10 82 03/08/22 13:06 97.7 F L 03/08/22 13:05 96 03/08/22 13:05 86 03/08/22 13:00 98 03/08/22 13:00 88 03/08/22 12:56 93 03/08/22 12:56 134/63 H 03/08/22 12:55 98 03/08/22 12:55 86 03/08/22 12:49 98 03/08/22 12:49 87 03/08/22 12:45 93 03/08/22 12:45 127/80 H 03/08/22 12:44 98 03/08/22 12:44 91 03/08/22 12:39 98 03/08/22 12:40 88 03/08/22 12:40 124/70 H 03/08/22 12:34 98 03/08/22 12:35 89 03/08/22 12:35 135/75 H 03/08/22 12:29 98 03/08/22 12:29 88 03/08/22 12:29 133/66 H 03/08/22 12:18 97.0 F L 03/08/22 12:19 96 03/08/22 12:19 119/59 L 03/08/22 11:02 97.7 F L 03/08/22 11:02 85 03/08/22 11:02 122/68 H 03/08/22 09:54 97.9 F 03/08/22 09:55 73 03/08/22 09:55 125/74 H 03/08/22 08:29 97.4 F L 03/08/22 08:29 84 03/08/22 08:29 133/75 H 03/08/22 07:23 98.0 F 03/08/22 07:23 98 03/08/22 07:23 87 03/08/22 07:23 110/60 03/08/22 05:55 97.8 F 03/08/22 05:55 98 03/08/22 05:55 78 03/08/22 05:55 118/65 03/08/22 01:48 97.8 F 03/08/22 01:49 97 03/08/22 01:49 76 03/08/22 01:49 80 03/08/22 01:49 119/81 H 03/07/22 22:22 98.5 F 03/07/22 22:22 72 03/07/22 22:22 126/69 H 03/07/22 19:41 98.2 F 03/07/22 19:41 97 03/07/22 19:41 88 03/07/22 19:41 112/63 03/07/22 17:03 98.4 F 03/07/22 17:03 97 03/07/22 17:03 78 03/07/22 17:03 115/70 03/07/22 14:24 98.1 F 03/07/22 14:24 96 03/07/22 14:25 101 H 03/07/22 14:25 100/56 L 03/07/22 11:25 97.6 F L 07/14/22 11:25 97 03/07/22 11:25 97 03/07/22 11:25 89 03/07/22 11:24 86 03/07/22 11:24 123/64 H 03/07/22 08:05 98.1 F 03/07/22 08:05 97 03/07/22 08:04 98 03/07/22 08:05 90 03/07/22 08:05 120/70 Lab tests last 48H 03/07/22 03/07/22 03/07/22 08:43 09:15 09:15 WBC 11.1 H RBC 3.82 L Hgb 10.6 L Hct 32.9 L MCV 86.1 MCH 27.7 MCHC 32.2 RDW Std Deviation 42.2 RDW Coeff of [place] 13.6 Plt Count 226 MPV 11.9 Immature Gran % (Auto) 0.900 Neut % (Auto) 71.5 H Lymph % (Auto) 13.8 L [place] % (Auto) 6.2 Eos % (Auto) 7.2 H Baso % (Auto) 0.4 Absolute Neuts (auto) 7.9 H Absolute Lymphs (auto) 1.52 Nucleated RBC % 0 POC Glucose 97 Blood Type O POSITIVE Antibody Screen NEGATIVE 03/07/22 03/07/22 03/07/22 10:01 14:54 15:53 WBC RBC Hgb Hct MCV MCH MCHC RDW Std Deviation RDW Coeff of [place] Plt Count MPV Immature Gran % (Auto) Neut % (Auto) Lymph % (Auto) [place] % (Auto) Eos % (Auto) Baso % (Auto) Absolute Neuts (auto) Absolute Lymphs (auto) Nucleated RBC % POC Glucose 99 115 H 84 Blood Type Antibody Screen 03/07/22 03/07/22 03/08/22 17:55 21:23 01:45 WBC RBC Hgb Hct MCV MCH MCHC RDW Std Deviation RDW Coeff of [place] Plt Count MPV Immature Gran % (Auto) Neut % (Auto) Lymph % (Auto) [place] % (Auto) Eos % (Auto) Baso % (Auto) Absolute Neuts (auto) Absolute Lymphs (auto) Nucleated RBC % POC Glucose 78 92 94 Blood Type Antibody Screen 03/08/22 03/08/22 03/08/22 05:59 09:53 11:15 WBC RBC Hgb Hct MCV MCH MCHC RDW Std Deviation RDW Coeff of [place] Plt Count MPV Immature Gran % (Auto) Neut % (Auto) Lymph % (Auto) [place] % (Auto) Eos % (Auto) Baso % (Auto) Absolute Neuts (auto) Absolute Lymphs (auto) Nucleated RBC % POC Glucose 101 91 91 Blood Type Antibody Screen 03/08/22 03/08/22 03/08/22 12:17 13:05 14:14 WBC RBC Hgb Hct MCV MCH MCHC RDW Std Deviation RDW Coeff of [place] Plt Count MPV Immature Gran % (Auto) Neut % (Auto) Lymph % (Auto) [place] % (Auto) Eos % (Auto) Baso % (Auto) Absolute Neuts (auto) Absolute Lymphs (auto) Nucleated RBC % POC Glucose 96 106 91 Blood Type Antibody Screen 03/08/22 03/08/22 03/08/22 15:54 17:01 18:16 WBC RBC Hgb Hct MCV MCH MCHC RDW Std Deviation RDW Coeff of [place] Plt Count MPV Immature Gran % (Auto) Neut % (Auto) Lymph % (Auto) [place] % (Auto) Eos % (Auto) Baso % (Auto) Absolute Neuts (auto) Absolute Lymphs (auto) Nucleated RBC % POC Glucose 94 90 85 Blood Type Antibody Screen 03/08/22 03/08/22 03/08/22 19:15 20:12 21:18 WBC RBC Hgb Hct MCV MCH MCHC RDW Std Deviation RDW Coeff of [place] Plt Count MPV Immature Gran % (Auto) Neut % (Auto) Lymph % (Auto) [place] % (Auto) Eos % (Auto) Baso % (Auto) Absolute Neuts (auto) Absolute Lymphs (auto) Nucleated RBC % POC Glucose 89 94 104 Blood Type Antibody Screen Micro - Preliminary and Final Results 03/07/22 09:15 SARS-CoV-2 Antigen (Rapid) - Final Nasal Secretion Delivery/Maternal Data Labor/Delivery Date of rupture of membranes: 03/08/22 Time of rupture of membranes: 08:00 Amniotic fluid color at rupture: Clear Type of delivery: LI Labor description: Induced-Oxytocin and Induced-AROM Vacuum Extraction: N/A presentation: Cephalic Complications: Maternal fever (>/=100.4) Maternal Data Maternal age: 41 : 1 Para: 0 Final HILDA: 03/19/22 Blood Type:: O RH:: POSITIVE RPR/VDRL/Syphilis: Nonreactive HbSAg: Negative Hepatitis C: Negative HIV/AIDS: Non-Reactive Rubella status: Immune Gonorrhea: Negative Chlamydia: Negative Group B Strep:: Negative Gestational Diabetes: Yes (GDMA2) Vital Signs Vital Signs Vital Signs: 03/08/22 01:49 03/08/22 01:49 03/08/22 01:48 Temperature Temperature Source Temporal Pulse Rate 80 Respiratory Rate Respiratory Depth Respiratory Pattern Blood Pressure 119/81 H Blood Pressure Mean BP Systolic 119 BP Diastolic 81 Blood Pressure Source Blood Pressure Position Blood Pressure Location Baseline BP Pulse Ox Oxygen Delivery Method 03/08/22 01:49 03/08/22 01:49 03/08/22 01:48 Temperature 97.8 F Temperature Source Pulse Rate 76 Respiratory Rate Respiratory Depth Respiratory Pattern Blood Pressure Blood Pressure Mean BP Systolic BP Diastolic Blood Pressure Source Blood Pressure Position Blood Pressure Location Baseline BP Pulse Ox 97 Oxygen Delivery Method 03/08/22 05:55 03/08/22 05:55 03/08/22 05:55 Temperature Temperature Source Temporal Pulse Rate 78 Respiratory Rate Respiratory Depth Respiratory Pattern Blood Pressure 118/65 Blood Pressure Mean BP Systolic 118 BP Diastolic 65 Blood Pressure Source Blood Pressure Position Blood Pressure Location Baseline BP Pulse Ox Oxygen Delivery Method 03/08/22 05:55 03/08/22 05:55 03/08/22 07:23 Temperature 97.8 F Temperature Source Pulse Rate Respiratory Rate Respiratory Depth Respiratory Pattern Blood Pressure 110/60 Blood Pressure Mean BP Systolic 110 BP Diastolic 60 Blood Pressure Source Blood Pressure Position Blood Pressure Location Baseline BP Pulse Ox 98 Oxygen Delivery Method 03/08/22 07:23 03/08/22 07:23 03/08/22 07:23 Temperature Temperature Source Temporal Pulse Rate 87 Respiratory Rate Respiratory Depth Respiratory Pattern Blood Pressure Blood Pressure Mean BP Systolic BP Diastolic Blood Pressure Source Blood Pressure Position Blood Pressure Location Baseline BP Pulse Ox 98 Oxygen Delivery Method 03/08/22 07:23 03/08/22 08:29 03/08/22 08:29 Temperature 98.0 F Temperature Source Temporal Pulse Rate Respiratory Rate Respiratory Depth Respiratory Pattern Blood Pressure 133/75 H Blood Pressure Mean BP Systolic 133 BP Diastolic 75 Blood Pressure Source Blood Pressure Position Blood Pressure Location Baseline BP Pulse Ox Oxygen Delivery Method 03/08/22 08:29 03/08/22 08:29 03/08/22 09:54 Temperature 97.4 F L Temperature Source Temporal Pulse Rate 84 Respiratory Rate Respiratory Depth Respiratory Pattern Blood Pressure Blood Pressure Mean BP Systolic BP Diastolic Blood Pressure Source Blood Pressure Position Blood Pressure Location Baseline BP Pulse Ox Oxygen Delivery Method 03/08/22 09:55 03/08/22 09:55 03/08/22 09:54 Temperature 97.9 F Temperature Source Pulse Rate 73 Respiratory Rate Respiratory Depth Respiratory Pattern Blood Pressure 125/74 H Blood Pressure Mean BP Systolic 125 BP Diastolic 74 Blood Pressure Source Blood Pressure Position Blood Pressure Location Baseline BP Pulse Ox Oxygen Delivery Method 03/08/22 11:02 03/08/22 11:02 03/08/22 11:02 Temperature Temperature Source Temporal Pulse Rate 85 Respiratory Rate Respiratory Depth Respiratory Pattern Blood Pressure 122/68 H Blood Pressure Mean BP Systolic 122 BP Diastolic 68 Blood Pressure Source Blood Pressure Position Blood Pressure Location Baseline BP Pulse Ox Oxygen Delivery Method 03/08/22 11:02 03/08/22 12:18 03/08/22 12:19 Temperature 97.7 F L Temperature Source Temporal Pulse Rate Respiratory Rate Respiratory Depth Respiratory Pattern Blood Pressure 119/59 L Blood Pressure Mean BP Systolic 119 BP Diastolic 59 Blood Pressure Source Blood Pressure Position Blood Pressure Location Baseline BP Pulse Ox Oxygen Delivery Method 03/08/22 12:19 03/08/22 12:18 03/08/22 12:29 Temperature 97.0 F L Temperature Source Pulse Rate 96 Respiratory Rate Respiratory Depth Respiratory Pattern Blood Pressure 133/66 H Blood Pressure Mean BP Systolic 133 BP Diastolic 66 Blood Pressure Source Blood Pressure Position Blood Pressure Location Baseline BP Pulse Ox Oxygen Delivery Method 03/08/22 12:29 03/08/22 12:29 03/08/22 12:35 Temperature Temperature Source Pulse Rate 88 Respiratory Rate Respiratory Depth Respiratory Pattern Blood Pressure 135/75 H Blood Pressure Mean BP Systolic 135 BP Diastolic 75 Blood Pressure Source Blood Pressure Position Blood Pressure Location Baseline BP Pulse Ox 98 Oxygen Delivery Method 03/08/22 12:35 03/08/22 12:34 03/08/22 12:40 Temperature Temperature Source Pulse Rate 89 Respiratory Rate Respiratory Depth Respiratory Pattern Blood Pressure 124/70 H Blood Pressure Mean BP Systolic 124 BP Diastolic 70 Blood Pressure Source Blood Pressure Position Blood Pressure Location Baseline BP Pulse Ox 98 Oxygen Delivery Method 03/08/22 12:40 03/08/22 12:39 03/08/22 12:44 Temperature Temperature Source Pulse Rate 88 91 Respiratory Rate Respiratory Depth Respiratory Pattern Blood Pressure Blood Pressure Mean BP Systolic BP Diastolic Blood Pressure Source Blood Pressure Position Blood Pressure Location Baseline BP Pulse Ox 98 Oxygen Delivery Method 03/08/22 12:44 03/08/22 12:45 03/08/22 12:45 Temperature Temperature Source Pulse Rate 93 Respiratory Rate Respiratory Depth Respiratory Pattern Blood Pressure 127/80 H Blood Pressure Mean BP Systolic 127 BP Diastolic 80 Blood Pressure Source Blood Pressure Position Blood Pressure Location Baseline BP Pulse Ox 98 Oxygen Delivery Method 03/08/22 12:49 03/08/22 12:49 03/08/22 12:55 Temperature Temperature Source Pulse Rate 87 86 Respiratory Rate Respiratory Depth Respiratory Pattern Blood Pressure Blood Pressure Mean BP Systolic BP Diastolic Blood Pressure Source Blood Pressure Position Blood Pressure Location Baseline BP Pulse Ox 98 Oxygen Delivery Method 03/08/22 12:55 03/08/22 12:56 03/08/22 12:56 Temperature Temperature Source Pulse Rate 93 Respiratory Rate Respiratory Depth Respiratory Pattern Blood Pressure 134/63 H Blood Pressure Mean BP Systolic 134 BP Diastolic 63 Blood Pressure Source Blood Pressure Position Blood Pressure Location Baseline BP Pulse Ox 98 Oxygen Delivery Method 03/08/22 13:00 03/08/22 13:00 03/08/22 13:05 Temperature Temperature Source Pulse Rate 88 86 Respiratory Rate Respiratory Depth Respiratory Pattern Blood Pressure Blood Pressure Mean BP Systolic BP Diastolic Blood Pressure Source Blood Pressure Position Blood Pressure Location Baseline BP Pulse Ox 98 Oxygen Delivery Method 03/08/22 13:05 03/08/22 13:06 03/08/22 13:06 Temperature 97.7 F L Temperature Source Temporal Pulse Rate Respiratory Rate Respiratory Depth Respiratory Pattern Blood Pressure Blood Pressure Mean BP Systolic BP Diastolic Blood Pressure Source Blood Pressure Position Blood Pressure Location Baseline BP Pulse Ox 96 Oxygen Delivery Method 03/08/22 13:10 03/08/22 13:10 03/08/22 13:15 Temperature Temperature Source Pulse Rate 82 94 Respiratory Rate Respiratory Depth Respiratory Pattern Blood Pressure Blood Pressure Mean BP Systolic BP Diastolic Blood Pressure Source Blood Pressure Position Blood Pressure Location Baseline BP Pulse Ox 97 Oxygen Delivery Method 03/08/22 13:15 03/08/22 13:20 03/08/22 13:20 Temperature Temperature Source Pulse Rate 92 Respiratory Rate Respiratory Depth Respiratory Pattern Blood Pressure Blood Pressure Mean BP Systolic BP Diastolic Blood Pressure Source Blood Pressure Position Blood Pressure Location Baseline BP Pulse Ox 97 97 Oxygen Delivery Method 03/08/22 13:25 03/08/22 13:25 03/08/22 13:30 Temperature Temperature Source Pulse Rate 92 Respiratory Rate Respiratory Depth Respiratory Pattern Blood Pressure 96/55 L Blood Pressure Mean BP Systolic 96 BP Diastolic 55 Blood Pressure Source Blood Pressure Position Blood Pressure Location Baseline BP Pulse Ox 98 Oxygen Delivery Method 03/08/22 13:30 03/08/22 13:30 03/08/22 13:30 Temperature Temperature Source Pulse Rate 93 101 H Respiratory Rate Respiratory Depth Respiratory Pattern Blood Pressure Blood Pressure Mean BP Systolic BP Diastolic Blood Pressure Source Blood Pressure Position Blood Pressure Location Baseline BP Pulse Ox 99 Oxygen Delivery Method 03/08/22 13:35 03/08/22 13:35 03/08/22 13:40 Temperature Temperature Source Pulse Rate 98 99 Respiratory Rate Respiratory Depth Respiratory Pattern Blood Pressure Blood Pressure Mean BP Systolic BP Diastolic Blood Pressure Source Blood Pressure Position Blood Pressure Location Baseline BP Pulse Ox 99 Oxygen Delivery Method 03/08/22 13:40 03/08/22 13:45 03/08/22 13:45 Temperature Temperature Source Pulse Rate 97 Respiratory Rate Respiratory Depth Respiratory Pattern Blood Pressure Blood Pressure Mean BP Systolic BP Diastolic Blood Pressure Source Blood Pressure Position Blood Pressure Location Baseline BP Pulse Ox 97 97 Oxygen Delivery Method 03/08/22 13:50 03/08/22 13:50 03/08/22 13:55 Temperature Temperature Source Pulse Rate 99 97 Respiratory Rate Respiratory Depth Respiratory Pattern Blood Pressure Blood Pressure Mean BP Systolic BP Diastolic Blood Pressure Source Blood Pressure Position Blood Pressure Location Baseline BP Pulse Ox 96 Oxygen Delivery Method 03/08/22 13:55 03/08/22 14:00 03/08/22 14:00 Temperature Temperature Source Pulse Rate 98 Respiratory Rate Respiratory Depth Respiratory Pattern Blood Pressure 93/52 L Blood Pressure Mean BP Systolic 93 BP Diastolic 52 Blood Pressure Source Blood Pressure Position Blood Pressure Location Baseline BP Pulse Ox 96 Oxygen Delivery Method 03/08/22 14:00 03/08/22 14:00 03/08/22 14:05 Temperature Temperature Source Pulse Rate 98 98 Respiratory Rate Respiratory Depth Respiratory Pattern Blood Pressure Blood Pressure Mean BP Systolic BP Diastolic Blood Pressure Source Blood Pressure Position Blood Pressure Location Baseline BP Pulse Ox 96 Oxygen Delivery Method 03/08/22 14:05 03/08/22 14:10 03/08/22 14:10 Temperature Temperature Source Pulse Rate 98 Respiratory Rate Respiratory Depth Respiratory Pattern Blood Pressure Blood Pressure Mean BP Systolic BP Diastolic Blood Pressure Source Blood Pressure Position Blood Pressure Location Baseline BP Pulse Ox 96 95 Oxygen Delivery Method 03/08/22 14:14 03/08/22 14:14 03/08/22 14:31 Temperature 97.6 F L Temperature Source Temporal Pulse Rate Respiratory Rate Respiratory Depth Respiratory Pattern Blood Pressure 89/51 L Blood Pressure Mean BP Systolic 89 BP Diastolic 51 Blood Pressure Source Blood Pressure Position Blood Pressure Location Baseline BP Pulse Ox Oxygen Delivery Method 03/08/22 14:31 03/08/22 14:42 03/08/22 14:42 Temperature Temperature Source Pulse Rate 97 88 Respiratory Rate Respiratory Depth Respiratory Pattern Blood Pressure 122/66 H Blood Pressure Mean BP Systolic 122 BP Diastolic 66 Blood Pressure Source Blood Pressure Position Blood Pressure Location Baseline BP Pulse Ox Oxygen Delivery Method 03/08/22 15:00 03/08/22 15:00 03/08/22 15:13 Temperature Temperature Source Temporal Pulse Rate 88 Respiratory Rate Respiratory Depth Respiratory Pattern Blood Pressure 105/58 L Blood Pressure Mean BP Systolic 105 BP Diastolic 58 Blood Pressure Source Blood Pressure Position Blood Pressure Location Baseline BP Pulse Ox Oxygen Delivery Method 03/08/22 15:13 03/08/22 15:29 03/08/22 15:29 Temperature 97.6 F L Temperature Source Pulse Rate 100 Respiratory Rate Respiratory Depth Respiratory Pattern Blood Pressure 117/61 Blood Pressure Mean BP Systolic 117 BP Diastolic 61 Blood Pressure Source Blood Pressure Position Blood Pressure Location Baseline BP Pulse Ox Oxygen Delivery Method 03/08/22 15:59 03/08/22 15:59 03/08/22 16:31 Temperature Temperature Source Temporal Pulse Rate 100 Respiratory Rate Respiratory Depth Respiratory Pattern Blood Pressure 129/66 H Blood Pressure Mean BP Systolic 129 BP Diastolic 66 Blood Pressure Source Blood Pressure Position Blood Pressure Location Baseline BP Pulse Ox Oxygen Delivery Method 03/08/22 16:32 03/08/22 16:32 03/08/22 16:31 Temperature 97.9 F Temperature Source Pulse Rate 95 Respiratory Rate Respiratory Depth Respiratory Pattern Blood Pressure Blood Pressure Mean BP Systolic BP Diastolic Blood Pressure Source Blood Pressure Position Blood Pressure Location Baseline BP Pulse Ox 97 Oxygen Delivery Method 03/08/22 17:00 03/08/22 17:00 03/08/22 17:29 Temperature Temperature Source Pulse Rate 96 Respiratory Rate Respiratory Depth Respiratory Pattern Blood Pressure 86/51 L 86/45 L Blood Pressure Mean BP Systolic 86 86 BP Diastolic 51 45 Blood Pressure Source Blood Pressure Position Blood Pressure Location Baseline BP Pulse Ox Oxygen Delivery Method 03/08/22 17:29 03/08/22 17:40 03/08/22 17:40 Temperature 98.9 F Temperature Source Temporal Pulse Rate 100 Respiratory Rate Respiratory Depth Respiratory Pattern Blood Pressure Blood Pressure Mean BP Systolic BP Diastolic Blood Pressure Source Blood Pressure Position Blood Pressure Location Baseline BP Pulse Ox Oxygen Delivery Method 03/08/22 17:41 03/08/22 17:41 03/08/22 17:45 Temperature Temperature Source Pulse Rate 117 H Respiratory Rate Respiratory Depth Respiratory Pattern Blood Pressure 118/62 Blood Pressure Mean BP Systolic 118 BP Diastolic 62 Blood Pressure Source Blood Pressure Position Blood Pressure Location Baseline BP Pulse Ox 97 Oxygen Delivery Method 03/08/22 17:45 03/08/22 18:00 03/08/22 18:00 Temperature Temperature Source Pulse Rate 108 H 110 H Respiratory Rate Respiratory Depth Respiratory Pattern Blood Pressure 133/68 H Blood Pressure Mean BP Systolic 133 BP Diastolic 68 Blood Pressure Source Blood Pressure Position Blood Pressure Location Baseline BP Pulse Ox Oxygen Delivery Method 03/08/22 18:29 03/08/22 18:29 03/08/22 18:33 Temperature Temperature Source Temporal Pulse Rate 105 H Respiratory Rate Respiratory Depth Respiratory Pattern Blood Pressure 129/72 H Blood Pressure Mean BP Systolic 129 BP Diastolic 72 Blood Pressure Source Blood Pressure Position Blood Pressure Location Baseline BP Pulse Ox Oxygen Delivery Method 03/08/22 18:33 03/08/22 19:00 03/08/22 19:00 Temperature 99.1 F Temperature Source Pulse Rate 102 H Respiratory Rate Respiratory Depth Respiratory Pattern Blood Pressure 132/72 H Blood Pressure Mean BP Systolic 132 BP Diastolic 72 Blood Pressure Source Blood Pressure Position Blood Pressure Location Baseline BP Pulse Ox Oxygen Delivery Method 03/08/22 19:02 03/08/22 19:02 03/08/22 20:06 Temperature 99.3 F H Temperature Source Temporal Pulse Rate Respiratory Rate Respiratory Depth Respiratory Pattern Blood Pressure 119/55 L Blood Pressure Mean BP Systolic 119 BP Diastolic 55 Blood Pressure Source Blood Pressure Position Blood Pressure Location Baseline BP Pulse Ox Oxygen Delivery Method 03/08/22 20:06 03/08/22 20:08 03/08/22 20:08 Temperature Temperature Source Pulse Rate 98 104 H Respiratory Rate Respiratory Depth Respiratory Pattern Blood Pressure Blood Pressure Mean BP Systolic BP Diastolic Blood Pressure Source Blood Pressure Position Blood Pressure Location Baseline BP Pulse Ox 97 Oxygen Delivery Method 03/08/22 20:06 03/08/22 20:06 03/08/22 20:36 Temperature 100.7 F H Temperature Source Temporal Temporal Pulse Rate Respiratory Rate Respiratory Depth Respiratory Pattern Blood Pressure Blood Pressure Mean BP Systolic BP Diastolic Blood Pressure Source Blood Pressure Position Blood Pressure Location Baseline BP Pulse Ox Oxygen Delivery Method 03/08/22 20:36 03/08/22 21:09 03/08/22 21:09 Temperature 101.7 F H Temperature Source Pulse Rate 110 H Respiratory Rate Respiratory Depth Respiratory Pattern Blood Pressure 98/52 L Blood Pressure Mean BP Systolic 98 BP Diastolic 52 Blood Pressure Source Blood Pressure Position Blood Pressure Location Baseline BP Pulse Ox Oxygen Delivery Method 03/08/22 21:15 03/08/22 21:16 03/08/22 21:16 Temperature Temperature Source Temporal Pulse Rate 117 H Respiratory Rate Respiratory Depth Respiratory Pattern Blood Pressure Blood Pressure Mean BP Systolic BP Diastolic Blood Pressure Source Blood Pressure Position Blood Pressure Location Baseline BP Pulse Ox 96 Oxygen Delivery Method 03/08/22 21:15 03/08/22 23:01 03/08/22 23:01 Temperature 100.9 F H Temperature Source Pulse Rate 93 Respiratory Rate 14 14 Respiratory Depth Normal Respiratory Pattern Blood Pressure 107/61 Blood Pressure Mean 76 BP Systolic BP Diastolic Blood Pressure Source Monitor Blood Pressure Position Semi-Fowlers Blood Pressure Location Left Arm Baseline BP 98/52 Pulse Ox 95 95 Oxygen Delivery Method Room Air Room Air 03/08/22 22:45 03/08/22 23:15 Temperature 99.7 F H Temperature Source Temporal Pulse Rate 99 86 Respiratory Rate 16 14 Respiratory Depth Respiratory Pattern Normal Blood Pressure 94/62 106/55 L Blood Pressure Mean 72 72 BP Systolic BP Diastolic Blood Pressure Source Monitor Monitor Blood Pressure Position Semi-Fowlers Semi-Fowlers Blood Pressure Location Left Arm Left Arm Baseline BP 98/52 98/52 Pulse Ox 96 95 Oxygen Delivery Method Room Air Room Air Weight Weight: 109 kg Body Mass Index (BMI) 37.6 General Weight: 109 kg alert, active, no apparent distress, well developed, strong cry and responsive to exam HEENT Yes normal to inspection, normocephalic and caput succedaneum Eyes: red reflex present bilaterally Ears: Yes low seated Oropharynx: Yes oral and palatal mucosa normal upslanting palpebral fissures, low set ears, upturned nose Neck Neck: full ROM and supple Respiratory Respiratory: retractions Cardiovascular Yes regular rate, regular rhythm, no murmurs and femoral pulses present Abdomen normal to inspection, nondistended, normoactive bowel sounds, soft to palpation and non-distended 3 Vessels Musculoskeletal full ROM and hip exam without evidence of dislocation or instability Neurological decreased tone globally Skin normal color
[2022-03-09] VITALS (25 sets, daily range): BP systolic 98–119; BP diastolic 51–66; PULSE 73–101; RESP 14–18; TEMP 35.6–37.3; O2SAT 93–100
--- NOTE | 2022-03-09 00:52 | NURSING ---
Pt instructed on how to use breast pump. Pumping for the first time at this time.
--- NOTE | 2022-03-09 01:00 | NURSING ---
Used Ligasure device [id number] for electrocautery
--- NOTE | 2022-03-09 01:18 | NURSING ---
at time of delivery, does not meet criteria for Triple I as did not have tachycardia, and WBC's were 11.1 on admission, have not been checked since that time to know if WBC's >15,000 eclectrocautery used was machine [id number]
[2022-03-09 01:25] LABS: Bedside Glucose 102 mg/dL (74-106)
[2022-03-09] MEDS: Lactated Ringers 1,000 ML 100 ML IV (01:29)
[2022-03-09] MEDS: Acetaminophen 500 MG Tablet 1000 MG PO ×4 (03:05→21:00)
[2022-03-09] MEDS: Ketorolac 30 MG/ML Syringe IV ×3 (05:06→19:03)
[2022-03-09] MEDS: 0.9% Saline Lock 10 ML Syringe IV ×3 (05:06→19:03)
[2022-03-09 05:55] LABS: Hematocrit 28.6 % (37-47); Hemoglobin 9.4 g/dL (12.0-15.0); Mean Corp Hgb Conc 32.9 g/dL (32-36); Mean Corpuscular Hgb 28.6 pg (27.0-32.0); Mean Corpuscular Volume 86.9 fL (81-99); Mean Platelet Vol. 11.9 fl (6.2-12.0); Platelet Count 202 K/mm3 (150-450); RBC Distribution Width CV 13.5 % (11.6-14.6); RBC Distribution Width SD 42.3 fl (35.1-43.9); Red Blood Count 3.29 M/mm3 (4.2-5.4); White Blood Count 18.8 K/mm3 (4.4-11.0)
[2022-03-09] MEDS: Cefazolin 1 GM/50 ML BAG IV ×2 (06:33→15:08)
[2022-03-09] MEDS: Senna/Docusate Sodium 1 Tablet PO (08:58)
[2022-03-09] MEDS: Enoxaparin 40 MG/0.4 ML Syringe SC (10:31)
--- NOTE | 2022-03-09 11:39 | PN.OBGYN_ITS ---
Subjective Subjective Patient without complaints. Tolerating diet well. Denies flatus. Breast- feeding is going well. Minimal vaginal bleeding reported. Objective Data Objective Data Good urine output. Hemoglobin okay. Mepilex dressing is clean, dry, and int act. No fever since delivery. Vital Signs: Vital Signs Temp Pulse Resp BP Pulse Ox O2 Del Method 96.4 F L 73 17 112/60 99 Room Air 03/09/22 07:50 03/09/22 10:25 03/09/22 10:25 03/09/22 07:50 03/09/22 10:25 03/09/22 10:25 Oxygen Delivery Method Room Air Weight: 240 lb 4.862 oz Body Mass Index (BMI) 37.6 Intake & Output: Intake and Output for Last 24 Hours 03/07/22 03/08/22 03/09/22 23:59 23:59 23:59 Intake Total 1670.83 / 1670.83 3375.47 / 3375.47 1060.38 / 1060.38 Output Total 1850 / 1850 1050 / 1050 Balance 1670.83 / 1670.83 1525.47 / 1525.47 10.38 / 10.38 Lab / Micro Data Result Diagrams: 03/09/22 05:45 Labs: Laboratory Results - last 24 hr 03/08/22 11:15: POC Glucose 91 03/08/22 12:17: POC Glucose 96 03/08/22 13:05: POC Glucose 106 03/08/22 14:14: POC Glucose 91 03/08/22 15:54: POC Glucose 94 03/08/22 17:01: POC Glucose 90 03/08/22 18:16: POC Glucose 85 03/08/22 19:15: POC Glucose 89 03/08/22 20:12: POC Glucose 94 03/08/22 21:18: POC Glucose 104 03/09/22 00:44: POC Glucose 102 03/09/22 05:45: WBC 18.8 H, RBC 3.29 L, Hgb 9.4 L, Hct 28.6 L, MCV 86.9, MCH 28.6, MCHC 32.9, RDW Std Deviation 42.3, RDW Coeff of [place] 13.5, Plt Count 202, MPV 11.9 Micro: Microbiology 03/07/22 09:15 Nasal Secretion SARS-CoV-2 Antigen (Rapid) - Final Assessment & Plan (1) Delivery by section: PLAN: Doing well postoperative day #1 status post primary section for macrosomia, failure to progress, early chorioamnionitis. Chorioamnionitis likely resolved with delivery and antibiotic now stopped. Continuing present care.
[2022-03-09] MEDS: Loratadine 10 MG Tablet PO (11:48)
--- NOTE | 2022-03-09 16:52 | NURSING ---
after hawthorne catheter and IV fluids discontinued this AM pt encouraged to PO hydrate. after voiding x2 with low output noted pt reports that she feels she empties her bladder when voiding. bedside bladder scanned and noted to have 50-80 ml of urine. pt encouraged to PO hydrate and will reevaluate in 1-2 hours if further intervention is needed.
--- NOTE | 2022-03-09 18:53 | NURSING ---
@ 1840 bladder scanned for 236 ml and pt voided after scan for 200 ml urine. pt encouraged to continue to PO hydrate, water pitcher refilled.
[2022-03-10 01:15] VITALS: BP 102/68; PULSE 89; RESP 16; TEMP 36.1; O2SAT 97
[2022-03-10] MEDS: Ibuprofen 600 MG Tablet PO ×4 (01:18→20:17)
[2022-03-10] MEDS: Acetaminophen 500 MG Tablet 1000 MG PO ×4 (03:25→22:04)
[2022-03-10 07:20] LABS: Bedside Glucose 133 mg/dL (74-106)
--- NOTE | 2022-03-10 07:59 | PN.OBGYN_ITS ---
Subjective Subjective Patient without complaints. Tolerating diet well. Positive flatus. Breast- feeding going well. Objective Data Objective Data Vital Signs: Vital Signs Temp Pulse Resp BP Pulse Ox O2 Del Method 97.0 F L 89 16 102/68 97 Room Air 03/10/22 01:03/10/22 01:03/10/22 01:03/10/22 01:03/10/22 01:03/10/22 01:15 Oxygen Delivery Method Room Air Weight: 240 lb 4.862 oz Body Mass Index (BMI) 37.6 Intake & Output: Intake and Output for Last 24 Hours 03/08/22 03/09/22 03/10/22 23:59 23:59 23:59 Intake Total 3375.47 / 3375.47 2910.38 / 2910.38 Output Total 1850 / 1850 1800 / 1800 Balance 1525.47 / 1525.47 1110.38 / 1110.38 Lab / Micro Data Result Diagrams: 03/09/22 05:45 Labs: Laboratory Results - last 24 hr 03/10/22 06:58: POC Glucose 133 H Micro: Microbiology 03/07/22 09:15 Nasal Secretion SARS-CoV-2 Antigen (Rapid) - Final Assessment & Plan (1) Delivery by section: PLAN: Doing well postoperative day #2 status post primary section. Continuing present care.
[2022-03-10] MEDS: Enoxaparin 40 MG/0.4 ML Syringe SC (10:08)
[2022-03-10] MEDS: Senna/Docusate Sodium 1 Tablet PO (10:09)
[2022-03-10 10:10] VITALS: BP 98/60; PULSE 93; RESP 18; TEMP 36.7; O2SAT 97
[2022-03-10] MEDS: Loratadine 10 MG Tablet PO (10:10)
[2022-03-10] MEDS: Hydrocortisone 2.5% Crm 1 APPLIC TOPICAL (10:22)
[2022-03-10 15:50] VITALS: BP 111/78; PULSE 92; RESP 16; TEMP 36.7; O2SAT 97
[2022-03-10 19:25] VITALS: BP 103/69; PULSE 87; RESP 14; TEMP 36.8; O2SAT 95
[2022-03-11 01:50] VITALS: BP 109/61; PULSE 91; RESP 16; TEMP 36.5; O2SAT 98
[2022-03-11] MEDS: Ibuprofen 600 MG Tablet PO ×3 (01:51→13:10)
[2022-03-11] MEDS: Acetaminophen 500 MG Tablet 1000 MG PO ×2 (04:08→10:00)
[2022-03-11 07:35] VITALS: BP 131/81; PULSE 94; RESP 18; TEMP 36.5; O2SAT 97
--- NOTE | 2022-03-11 09:00 | PCM.DC.BLA ---
Discharge Summary Date of Admission: 03/07/22 Date of Discharge: 03/11/22 Summary: Patient arrived on 03/07 for induction of labor with poorly controlled gestational diabetes and AMA. Subsequently delivered possible trisomy 21 baby on 03/08/2022 via primary for failure to progress. Genetic testing sent. Baby sent to special care for hypoglycemia and respiratory support. Patient discharged to [facility] status on 03/11/2022 Meaningful Use Info Meaningful Use Diagnoses (Choose all that apply): None applicable Discharge Plan Admission Admit Date/Time: 03/07/22 07:18 Primary Reason for Your Visit: Induction of labor Attending Provider: Fletcher Watson Primary Care Provider: Caitlin Kendrick Instructions Additional Instructions / Restrictions: Regular diet. No tub baths for 2 weeks. Okay to shower. May drive if not on narcotics. No heavy lifting over 25 pounds for 2 to 3 weeks. Call if chest pain, shortness of breath, increased bleeding. Follow-up 2 weeks postoperatively Discharge Orders/Prescriptions Prescriptions: New oxycodone 5 mg Tablet 5 mg PO Q6H PRN PRN (Reason: Pain Score 7-10) 4 Days Qty: 16 0RF Continued [id number]-[id number] 1 mg Tablet 1 tab PO DAILY loratadine [Claritin] 10 mg Tablet 10 mg PO DAILY cholecalciferol (vitamin D3) [Vitamin D3] 125 mcg (5,000 unit) Tablet 125 mcg PO DAILY Discontinued aspirin 81 mg Capsule 81 mg PO DAILY Levemir Flexpen 100 unit/mL (3 mL) Insulin Pen 35 unit SUBCUT QHS Levemir Flexpen 100 unit/mL (3 mL) Insulin Pen 15 unit SUBCUT BREAKFAST Referrals / Follow Up: Caitlin Kendrick MD [Primary Care Provider] - Disposition Disposition (needs filled in before D/C Order can be placed): Home, Self Care
--- NOTE | 2022-03-11 09:04 | PN.OBGYN_ITS ---
Subjective Subjective No overnight complaints. Pain well controlled. Objective Data Objective Data Vital Signs: Vital Signs Temp Pulse Resp BP Pulse Ox O2 Del Method 97.7 F L 94 18 131/81 H 97 Room Air 03/11/22 07:35 03/11/22 07:35 03/11/22 07:35 03/11/22 07:35 03/11/22 07:35 03/11/22 07:35 Oxygen Delivery Method Room Air Weight: 240 lb 4.862 oz Body Mass Index (BMI) 37.6 Intake & Output: Intake and Output for Last 24 Hours 03/09/22 03/10/22 03/11/22 23:59 23:59 23:59 Intake Total 2910.38 / 2910.38 Output Total 1800 / 1800 Balance 1110.38 / 1110.38 Lab / Micro Data Result Diagrams: 03/09/22 05:45 Micro: Microbiology 03/07/22 09:15 Nasal Secretion SARS-CoV-2 Antigen (Rapid) - Final Physical Exam Const alert, oriented x3, no apparent distress, average body habitus, healthy appearing and well nourished HEENT normocephalic Eyes PERRL Neck full ROM Resp normal respiratory effort, no retractions and no use of accessory muscles GI GI Narrative: Soft, nontender, bandage clean dry and intact Extremity normal to inspection, full ROM, no clubbing, cyanosis or edema, no calf tenderness and no pedal edema Psych mental status grossly normal, affect normal, speech normal and activity/motor behavior normal Assessment & Plan (1) Delivery by section: PLAN: day 3 status post primary section for failure to progress. Breast-feeding. Pain well controlled. She discharge to [facility] status
[2022-03-11 09:56] VITALS: BP 131/81; PULSE 94; RESP 18; TEMP 36.5; O2SAT 97
[2022-03-11] MEDS: Enoxaparin 40 MG/0.4 ML Syringe SC (10:00)
[2022-03-11] MEDS: Senna/Docusate Sodium 1 Tablet PO (10:02)
[2022-03-11] MEDS: Loratadine 10 MG Tablet PO (11:21)
== END 2022-03-11 13:15 | disposition home or self-care (01) | DRG 786 ==
PROVIDERS: Obstetrics & Gynecology; Admitting Provider Obstetrics & Gynecology; PCP Family Medicine; Referring Provider Obstetrics & Gynecology; Visit Provider Obstetrics & Gynecology
DX: O24.424 Gestational diabetes mellitus in childbirth, insulin controlled (principal); O41.1230 Chorioamnionitis, third trimester, not applicable or unspecified; O75.2 Pyrexia during labor, not elsewhere classified; O36.63X0 Maternal care for excessive fetal growth, third trimester, not applicable or unspecified; O62.1 Secondary uterine inertia; Z3A.38 38 weeks gestation of pregnancy; O35.1XX0 Maternal care for (suspected) chromosomal abnormality in fetus, not applicable or unspecified; O33.9 Maternal care for disproportion, unspecified; O77.9 Labor and delivery complicated by fetal stress, unspecified; Z37.0 Single live birth
CPT/HCPCS: 59025; 59050; 76815; 82962; 85025; 85027; 86850; 86900; 86901; 87426; 99218; J7120; A4216; G0378; J2405; J3490

== ENCOUNTER → 2022-10-22 | Outpatient (CLI) | payer OTHER, SELFPAY ==
[2022-10-30 14:54] LABS: HPV APTIMA, High Risk Negative (Negative)
== END | disposition home or self-care (01) ==
LOC: LABSPEC 14:49
PROVIDERS: PCP Family Medicine; Visit Provider Obstetrics & Gynecology
DX: Z12.4 Encounter for screening for malignant neoplasm of cervix (principal)
CPT/HCPCS: 87624; 88175; G0145

== ENCOUNTER → 2022-10-25 | Outpatient (CLI) | payer OTHER, SELFPAY ==
--- NOTE | 2022-10-25 12:00 | BI_ITS ---
MAMMOGRAPHY - BILATERAL SCREENING REASON FOR EXAM: Female, 42 years old. Routine annual screening examination. PERTINENT HISTORY: Non-contributory. TECHNIQUE: Digital bilateral breast disha (3D mammographic acquisition) in the CC and MLO projections. 2-D mediolateral oblique (MLO) and craniocaudad (CC) views of both breasts were obtained. CAD: Full Field Digital Mammography with Computer Added Detection was performed. COMPARISON: None. Baseline examination. FINDINGS: Breast Composition: The breasts are extremely dense, which lowers the sensitivity of mammography. There are no dominant masses or suspicious calcifications. Small benign-appearing lateral axillary lymph nodes. No other significant abnormalities are identified. BI/SCRN MAMM (CAD)W/DISHA BILAT IMPRESSION: Negative screening mammogram. Yearly followup mammogram recommended. (A) ASSESSMENT CATEGORY: BIRADS Category 2: Benign. A letter regarding these results will be sent to the patient by the facility within 30 days. Approximately 10% of breast cancers are not detected by mammography. A normal mammogram should not delay biopsy of a clinically suspicious abnormality. [id number] Electronically Signed: Gigi Bailey MD at 12:40 EST ,
== END | disposition home or self-care (01) ==
LOC: OPBI 11:58
PROVIDERS: PCP Family Medicine; Visit Provider Obstetrics & Gynecology
DX: Z12.31 Encounter for screening mammogram for malignant neoplasm of breast (principal)
CPT/HCPCS: 77063; 77067

== ENCOUNTER 2022-12-19 11:36 | Day surgery (SDC) | payer OTHER, SELFPAY ==
[2022-12-19 12:09] VITALS: BP 108/74; PULSE 74; RESP 16; TEMP 36.1; O2SAT 100; BMI 33.7
[2022-12-19 12:16] LABS: Internal QC Validated? YES +Cl - CLEAR BKGD; Pregnancy, Urine Negative Negative
[2022-12-19] MEDS: Lactated Ringers 1,000 ML 15 ML IV (12:25)
--- NOTE | 2022-12-19 12:28 | HP.PCM.SX_ITS ---
HPI - General General Date of Admission: 12/19/22 HPI Narrative ADRIA ANDINO, is a 42 F who presents for umbilical hernia pair with mesh. Patient states she still gets the occasional pain at the umbilical site. Otherwise patient is tolerating diet and having bowel function. Office visit 11/07/22 HPI HPI: 42-year-old female presents due to umbilical hernia.? Patient had a baby boy 8 months ago via .? Patient states she noticed this umbilical hernia and bulge about the past 3 weeks.? States she does get occasional pain with this and rates it a 7/10 when it does occur.? Patient is tolerating diet and having bowel function.? Patient never had previous surgery at her umbilicus. [facility] Medical History (Updated 12/12/22 @ 13:12 by Natali Easley) Acute postoperative pain Gestational diabetes Infertility Lymphadenopathy Umbilical hernia Wears contact lenses Wears glasses Home Medications [id number]-[id number]-FA 1 mg tablet 1 tab PO DAILY 03/07/22 [History Last Taken 03/07/22 05:30] cholecalciferol (vitamin D3) 125 mcg (5,000 unit) tablet (Vitamin D3) 125 mcg PO DAILY supplement 11/07/22 [History Last Taken Unknown] ergocalciferol (vitamin D2) 50 mcg (2,000 unit) capsule 200 mcg PO DAILY 11/07/22 [History Last Taken Unknown] fluticasone propionate 50 mcg/actuation nasal spray,suspension 2 spray intranasal DAILY 11/07/22 [History Last Taken Unknown] loratadine 10 mg tablet (Claritin) 10 mg PO DAILY PRN allergies 11/07/22 [History Last Taken Unknown] Allergy/AdvReac Type Severity Reaction Status Date / Time Sulfa (Sulfonamide Allergy Hives Verified 12/19/22 12:08 Antibiotics) Surgical History Delivery by section History of surgery Social History Smoking Status: Never smoker alcohol intake: never substance use type: does not use Vital Signs Vital Signs Vital Signs: 12/19/22 12:09 12/19/22 12:09 Temperature 97.0 F L Temperature Source Temporal Pulse Rate 74 Respiratory Rate 16 Respiratory Pattern Normal Blood Pressure 108/74 Blood Pressure Mean 85 Blood Pressure Source Monitor Blood Pressure Position Semi-Fowlers Blood Pressure Location Left Arm Pulse Ox 100 Oxygen Delivery Method Room Air Weight Weight: 222 lb 3.615 oz Body Mass Index (BMI) 33.7 Physical Exam Const alert, oriented x3 and no apparent distress HEENT normocephalic and head/scalp atraumatic Resp normal respiratory effort Cardio regular rate GI soft to palpation and non-tender; Negative for non-distended GI Narrative: Small reducible umbilical hernia about a centimeter in size. Palpation: Negative for guarding Extremity no clubbing, cyanosis or edema Neuro CN's II-XII intact bilaterally Psych mental status grossly normal Results Lab / Micro Data Labs: Laboratory Results - last 24 hr 12/19/22 11:55: Urine Test Negative Assessment & Plan Assessment/Plan (1) Umbilical hernia: (2) Diastasis recti: PLAN: Plan Plan to do an umbilical hernia repair with mesh. Reviewed the procedure with the patient including the risks, including but not limited to infection, bleeding, injury to the small bowel, and recurrence. All questions were answered. Nelli Rosa M.D. Pager: [phone] [facility] [address] [place] [address], [address] [place] [address] Office: [phone]
[2022-12-19] MEDS: Cefazolin 2 GM in 0.9% Normal Saline 100 ML IV (13:04)
--- NOTE | 2022-12-19 13:46 | OP.PCM_ITS ---
Report of Operation Date of Procedure: 12/19/22 Pre-Operative Diagnosis: umbilical hernia Post-Operative Diagnosis: same Surgery/Procedure Performed:: Umbilical hernia repair mesh Surgeon: Nelli Rosa rn maternal child: Lavern Bansal Type of Anesthesia: General/Supplemental Anesthesiologist: Prakash Mueller Special Medications: Ancef 2 g IV x1 Specimen's removed: None Estimated Blood Loss (mL): < 10 cc Description of Procedure: Patient was brought into the room placed supine on the operating table. Correct patient, procedure, site, positioning, special, was verified prior to procedure. General anesthesia was induced. The abdomen was prepped draped in usual ster ile fashion. A curvilinear incision was made below the umbilicus with a 15 blade scalpel. This was deepened with electrocautery. A hemostat was used to go around the stalk of the umbilicus and Metzenbaum scissors was used to carefully divide the hernia sac from the skin of the umbilicus. The fascia around the hernia defect was cleared and the hernia defect measured 2 cm x 2 cm as there was an adjacent hernia with only a small fascial bridge. Ventralex ST medium hernia patch was chosen and assured to be laying flat. 0 Prolene horizontal mattress sutures used to secure the tails superiorly & inferiorly. The defect was closed with 2 [id number] 0 Prolene sutures. The wound was irrigated with saline. Hemostasis was assured. The skin of the umbilicus was secured to the fascia usi ng 3-0 Vicryl sutures interrupted ?2. The incision was closed with 3-0 Vicryl subdermal interrupted sutures and the skin was closed with interrupted 4-0 Monocryl sutures. Steri-Strips and Tegaderm and OpSite were placed over the incision once sterile cotton balls were placed in the umbilicus. Patient was extubated. Patient tolerated procedure well and was taken to the postanesthesia care unit in stable condition. Grafts/Implants Used: Ventralex ST hernia patch-medium ref [id number] Lot [id number] Complications none
--- NOTE | 2022-12-19 13:50 | DCINST_ITS ---
Discharge Instructions Diet Discharge Diet: Light diet - advance as tolerated Activity May shower in (days): 5 (Keep umbilical dressing clean dry and intact for 5 days. Okay to tape off with a Ziploc bag to shower. Or lower shower and upper sponge bath.) Lifting Restrictions: no lifting >20 lbs x 2 wks, no strenuous exercise for 4 wks Additional Activity Instructions:: - Dressing / Incision Call your doctor if your incision/area has: Continuous Slow Oozing, Sudden Increased Bleeding, Increased Pain/ Swelling, Increased Redness, Foul Smelling Discharge and Swelling at the incision site Call your doctor if you observe: Fever of 101 or Higher Remove Dressing in: 5 days (After 5 days okay to remove surgical dressing. Place cotton ball or rolled up gauze in bellybutton and retape daily for 2 more days.) Cleanse incision/area with: Do not get Incision Wet (for 5 days) Additional Dressing/Incision Instructions:: Steri-Strips will fall off in 7 to 10 days, if they do not fall off okay to remove after 10 days. Follow Up Care Please Follow Up With: Nelli Rosa MD When: Call the office for a follow-up appointment 2 weeks; after 5 PM and on the weekends call [phone] with any concerns. Test Results: Test results from this visit will be discussed in further detail at your follow- up appointment, if applicable. Discharge Plan Admission Attending Provider: Nelli Rosa Primary Care Provider: Caitlin Kendrick Discharge Orders/Prescriptions Prescriptions: Continued fluticasone propionate 50 mcg/actuation spray,suspension 2 spray intranasal DAILY Rx Instructions: administer into each nostril ergocalciferol (vitamin D2) 50 mcg (2,000 unit) capsule 200 mcg PO DAILY Rx Instructions: 2000 units nrarcykp-mok-Ns-FA 1 mg Tablet 1 tab PO DAILY loratadine [Claritin] 10 mg tablet 10 mg PO DAILY PRN (Reason: allergies) cholecalciferol (vitamin D3) [Vitamin D3] 125 mcg (5,000 unit) tablet 125 mcg PO DAILY Referrals / Follow Up: Caitlin Kendrick MD [Primary Care Provider] - Disposition Disposition (needs filled in before D/C Order can be placed): Home, Self Care
[2022-12-19 14:00] VITALS: BP 108/74; BP 112/75; PULSE 81; RESP 16; TEMP 36.2; O2SAT 95
[2022-12-19 14:15] VITALS: BP 103/73; BP 108/74; PULSE 78; RESP 16; O2SAT 96
[2022-12-19 14:21] VITALS: BP 108/74; BP 113/75; PULSE 69; RESP 16; TEMP 36.4; O2SAT 96
[2022-12-19 15:08] VITALS: BP 108/74; BP 139/82; PULSE 70; RESP 16; TEMP 36.2; O2SAT 99
== END 2022-12-19 15:12 | disposition home or self-care (01) ==
LOC: SDC 11:37 → AC 11:39
PROVIDERS: Anesthesiology; PCP Family Medicine; Referring Provider Surgery; Visit Provider Surgery
PROC: (CPT 49593; principal; 2022-12-19 12:55)
DX: K42.9 Umbilical hernia without obstruction or gangrene (principal); M62.08 Separation of muscle (nontraumatic), other site
CPT/HCPCS: 49593; 00830; 81025; C1781; J7120; J2405

== ENCOUNTER → 2023-01-08 | Outpatient (CLI) | payer OTHER, SELFPAY ==
[2023-01-08 10:59] LABS: Anion Gap 6 (5-15); BUN 14 mg/dL (7-18); BUN/Creat Ratio 17.8 RATIO (10-20); Calcium,Total 8.8 mg/dL (8.5-10.1); Chloride 109 mmol/L (98-107); Cholesterol 145 mg/dL (200); Creatinine, Serum 0.79 mg/dL (0.55-1.02); EST Glomerular Filtration Rate 86 mL/min (>60); Est Glom Filt Rate - Afr Amer 104 mL/min (>60); Glucose 101 mg/dL (74-106); High Density Lipoprotein 42 mg/dL; Potassium 4.3 mmol/L (3.5-5.1); Sodium Level 141 mmol/L (136-145); Triglycerides 140 mg/dL; Very Low Density Lipoprotein 28 mg/dL (5-40)
== END | disposition home or self-care (01) ==
PROVIDERS: PCP Family Medicine; Referring Provider Family Medicine; Visit Provider Family Medicine
DX: Z00.00 Encounter for general adult medical examination without abnormal findings (principal)
CPT/HCPCS: 36415; 80048; 80061

== ENCOUNTER → 2023-11-21 | Outpatient (CLI) | payer OTHER, SELFPAY ==
[2023-11-21 12:22] LABS: Absolute Lymphocyte Count 1.95 X10^3/uL (0.83-4.51); Basophil# 0.06 X10^3/uL; Basophil% 0.6 % (0-1); Eosinophil# 0.19 X10^3/uL; Eosinophils% 1.9 % (0-5); Hematocrit 41.1 % (37-47); Hemoglobin 13.4 g/dL (12.0-15.0); Lymphocyte # 1.95 X10^3/ul (0.83-4.51); Lymphocyte % 19.6 % (19-41); Mean Corp Hgb Conc 32.6 g/dL (32-36); Mean Corpuscular Hgb 28.5 pg (27.0-32.0); Mean Corpuscular Volume 87.3 fL (81-99); Mean Platelet Vol. 11.2 fl (6.2-12.0); Monocyte# 0.73 X10^3/uL; Monocyte% 7.4 % (0-10); NRBC Flagged by Analyzer 0 % (0-5); Neutrophil # 6.97 X10^3/uL (2.7-7.7); Neutrophil % 70.2 % (47-70); Platelet Count 338 K/mm3 (150-450); RBC Distribution Width CV 12.1 % (11.6-14.6); RBC Distribution Width SD 38.8 fl (35.1-43.9); Red Blood Count 4.71 M/mm3 (4.2-5.4); White Blood Count 9.9 K/mm3 (4.4-11.0)
[2023-11-21 13:48] LABS: AST(SGOT) 14 U/L (15-37); Alanine Aminotransfer ALT/SGPT 23 U/L (13-56); Albumin, Serum 3.6 g/dL (3.2-5.0); Alkaline Phosphatase 97 U/L (45-117); Anion Gap 5 (5-15); BUN 12 mg/dL (7-18); BUN/Creat Ratio 14.9 RATIO (10-20); Calcium,Total 8.8 mg/dL (8.5-10.1); Chloride 106 mmol/L (98-107); Creatinine, Serum 0.81 mg/dL (0.55-1.02); EST Glomerular Filtration Rate 83 mL/min (>60); Est Glom Filt Rate - Afr Amer 101 mL/min (>60); Globulin 3.6 g/dL (2.2-4.2); Glucose 103 mg/dL (74-106); Potassium 3.8 mmol/L (3.5-5.1); Protein, Total 7.2 g/dL (6.4-8.2); Sodium Level 138 mmol/L (136-145); Thyroid Stim Hormone (TSH) 2.42 uIU/mL (0.358-3.74)
== END | disposition home or self-care (01) ==
LOC: MTLAB 11:02
PROVIDERS: PCP Family Medicine; Referring Provider Family Medicine; Visit Provider Family Medicine
DX: N92.6 Irregular menstruation, unspecified (principal)
CPT/HCPCS: 36415; 80053; 84443; 85025

== ENCOUNTER → 2024-01-02 | Outpatient (CLI) | payer OTHER, SELFPAY ==
--- NOTE | 2024-01-02 15:28 | US_ITS ---
INDICATION: metrorrhagia EXAMINATION: Ultrasound US Pelvis Non OB Complete With Transvaginal Imaging TECHNIQUE: Transabdominal and transvaginal pelvic ultrasound was performed. Grayscale, spectral waveform, and color flow Doppler evaluation of the adnexa. COMPARISON: None. FINDINGS: UTERUS: Anteverted. The uterus measures 9.8 x 6.4 x 4.6 cm. There is no uterine mass. The endometrial stripe measures 7 mm in AP diameter which is within normal limits. Multiple nabothian cysts are present. RIGHT OVARY: 2.5 x 2.1 x 2.6 cm. Non-enlarged, normal echogenicity. There is normal arterial inflow and venous outflow present in the right ovary. LEFT OVARY: 5.5 x 3.6 x 2.8 cm. Non-enlarged, normal echogenicity. There is normal arterial inflow and venous outflow present in the left ovary. There is a prominent anechoic cyst in LEFT ovary measuring 4.7 x 3.4 x 2.6 cm. FREE FLUID: Small amount of nonspecific fluid is present in the cul-de-sac. US/Pelvic w/ Transvaginal IMPRESSION: 1. Normal appearance the uterus and endometrium without endometrial fluid collections or abnormal blood flow. 2. Nabothian cysts are present. 3. Prominent LEFT ovarian cyst with maximal dimension of 4.7 mm. No abnormal blood flow. 4. Small amount of fluid is present cul-de-sac. MANAGEMENT OF OVARIAN CYSTS detected on ultrasound in asymptomatic women: Simple Cyst (cystic, no solid component, thin iros, can have small calcification or single thin septation) *Reproductive age women --- <5 cm - No follow-up --- >5-7 cm - Almost certainly benign, yearly ultrasound follow-up --- >7cm - MRI or surgical evaluation *Post-menopausal --- <1cm - No follow-up --- >1-7cm - Almost certainly benign, yearly ultrasound follow-up --- >7cm - MRI or surgical evaluation Note: The recommendations are offered as general guidance and do not necessarily apply to all patients. Electronically Signed: Ruslan Brown MD at 0:59 EDT ,
== END | disposition home or self-care (01) ==
LOC: US 15:27
PROVIDERS: PCP Family Medicine; Referring Provider Family Medicine; Visit Provider Family Medicine
DX: N92.6 Irregular menstruation, unspecified (principal)
CPT/HCPCS: 76830; 76856

== ENCOUNTER → 2024-02-09 | Outpatient (CLI) | payer OTHER, SELFPAY ==
[2024-02-09 11:44] LABS: Anion Gap 8 (5-15); BUN 10 mg/dL (7-18); BUN/Creat Ratio 12.2 RATIO (10-20); Calcium,Total 8.8 mg/dL (8.5-10.1); Chloride 107 mmol/L (98-107); Cholesterol 167 mg/dL (200); Creatinine, Serum 0.82 mg/dL (0.55-1.02); EST Glomerular Filtration Rate 81 mL/min (>60); Est Glom Filt Rate - Afr Amer 98 mL/min (>60); Glucose 116 mg/dL (74-106); High Density Lipoprotein 43 mg/dL; Potassium 3.7 mmol/L (3.5-5.1); Sodium Level 138 mmol/L (136-145); Triglycerides 255 mg/dL; Very Low Density Lipoprotein 51 mg/dL (5-40)
== END | disposition home or self-care (01) ==
PROVIDERS: PCP Family Medicine; Referring Provider Family Medicine; Visit Provider Family Medicine
DX: Z00.00 Encounter for general adult medical examination without abnormal findings (principal)
CPT/HCPCS: 36415; 80048; 80061

== ENCOUNTER → 2024-02-17 | Outpatient (CLI) | payer OTHER, SELFPAY ==
--- NOTE | 2024-02-17 15:15 | BI_ITS ---
MAMMOGRAPHY - BILATERAL SCREENING REASON FOR EXAM: Female, 43 years old. Routine annual screening examination. PERTINENT HISTORY: Non-contributory. TECHNIQUE: Digital bilateral breast disha (3D mammographic acquisition) in the CC and MLO projections. 2-D mediolateral oblique (MLO) and craniocaudad (CC) views of both breasts were obtained. CAD: Full Field Digital Mammography with Computer Added Detection was performed. COMPARISON: Comparison is made with prior study dated October 25, 2022. FINDINGS: Breast Composition: The breasts are extremely dense, which lowers the sensitivity of mammography. There are no dominant masses or suspicious calcifications. Fat-containing bilateral axillary lymph nodes. No other significant abnormalities are identified. There has been no significant change since the prior study. BI/SCRN MAMM (CAD)W/DISHA BILAT IMPRESSION: Stable bilateral screening mammogram. Yearly follow-up mammogram recommended. (A) ASSESSMENT CATEGORY: BIRADS Category 2: Benign. A letter regarding these results will be sent to the patient by the facility within 30 days. Approximately 10% of breast cancers are not detected by mammography. A normal mammogram should not delay biopsy of a clinically suspicious abnormality. [id number] Electronically Signed: Gigi Bailey MD at 8:22 EDT ,
== END | disposition home or self-care (01) ==
LOC: OPBI 15:15
PROVIDERS: PCP Family Medicine; Referring Provider Family Medicine; Visit Provider Family Medicine
DX: Z12.31 Encounter for screening mammogram for malignant neoplasm of breast (principal)
CPT/HCPCS: 77063; 77067

== ENCOUNTER → 2024-12-16 | Outpatient (CLI) | payer OTHER, SELFPAY | END | disposition home or self-care (01) | LOC: LABSPEC 16:19 | PROVIDERS: PCP Family Medicine; Referring Provider Nurse Practitioner Women's Health; Visit Provider Nurse Practitioner Women's Health | DX: N89.8 Other specified noninflammatory disorders of vagina (principal) | CPT/HCPCS: 87070; 87205 ==

== ENCOUNTER → 2025-02-09 | Outpatient (CLI) | payer OTHER, SELFPAY ==
[2025-02-09 10:48] LABS: Absolute Lymphocyte Count 1.87 X10^3/uL (0.83-4.51); Absolute Neutrophil Count 5.6 X10^3/uL (2.0-7.7); Basophil# 0.04 X10^3/uL; Basophil% 0.5 % (0-1); Eosinophil# 0.18 X10^3/uL; Eosinophils% 2.2 % (0-5); Hemoglobin 13.2 g/dL (12.0-15.0); Lymphocyte # 1.87 X10^3/ul (0.83-4.51); Lymphocyte % 22.9 % (19-41); Mean Corp Hgb Conc 32.2 g/dL (32-36); Mean Corpuscular Hgb 28.4 pg (27.0-32.0); Mean Corpuscular Volume 88.2 fL (81-99); Mean Platelet Vol. 11.6 fl (6.2-12.0); Monocyte# 0.48 X10^3/uL; Monocyte% 5.9 % (0-10); NRBC Flagged by Analyzer 0 % (0-5); Neutrophil # 5.56 X10^3/uL (2.7-7.7); Neutrophil % 68.3 % (47-70); Platelet Count 277 K/mm3 (150-450); RBC Distribution Width CV 12.7 % (11.6-14.6); RBC Distribution Width SD 41.1 fl (35.1-43.9); Red Blood Count 4.65 M/mm3 (4.2-5.4); White Blood Count 8.2 K/mm3 (4.4-11.0)
[2025-02-09 11:13] LABS: ALB/GLOB Ratio 1.5 RATIO (0.9-2.4); AST(SGOT) 23 U/L (<=31); Alanine Aminotransfer ALT/SGPT 25 U/L (<=34); Alkaline Phosphatase 85 U/L (35-104); Anion Gap 9 (5-15); BUN 8 mg/dL (4-19); BUN/Creat Ratio 11.4 RATIO (10-20); Calcium,Total 8.8 mg/dL (7.6-11.0); Carbon Dioxide 24.3 mmol/L (21.0-32.0); Chloride 104 mmol/L (98-108); Cholesterol 140 mg/dL (<=200); Creatinine, Serum 0.73 mg/dL (0.70-1.20); EST Glomerular Filtration Rate 105 (>60); Globulin 2.7 g/dL (2.2-4.2); Glucose 105 mg/dL (70-99); High Density Lipoprotein 40 mg/dL; Low Density Lipoprotein Calc. 69 mg/dL; Potassium 4.2 mmol/L (3.3-5.1); Protein, Total 6.7 g/dL (5.9-8.4); Sodium Level 137 mmol/L (133-145); Total Bilirubin 0.53 mg/dL (0.00-1.30); Triglycerides 157 mg/dL; Very Low Density Lipoprotein 31 mg/dL (5-40); cholesterol:hdl ratio screen 3.51
[2025-02-09 11:19] LABS: Hemoglobin A1c 5.8 % (<=5.6)
== END | disposition home or self-care (01) ==
LOC: MFPLAB 08:15
PROVIDERS: PCP Family Medicine
DX: R73.01 Impaired fasting glucose (principal)
CPT/HCPCS: 36415; 80053; 80061; 83036; 84443; 85025

== ENCOUNTER → 2025-05-17 | Outpatient (CLI) | payer OTHER, SELFPAY ==
[2025-05-17 11:10] LABS: Vitamin D,25 Hydroxy 13.6 ng/mL (30-100)
== END | disposition home or self-care (01) ==
LOC: MFPLAB 08:59
PROVIDERS: PCP Family Medicine; Visit Provider Family Medicine
DX: E55.9 Vitamin D deficiency, unspecified (principal); R73.03 Prediabetes
CPT/HCPCS: 36415; 82306; 83036

== ENCOUNTER → 2025-05-30 | Outpatient (CLI) | payer OTHER, SELFPAY ==
--- NOTE | 2025-05-30 15:45 | BI_ITS ---
EXAM: SCRN MAMM (CAD)W/DISHA BILAT DATE: 05/30/2025 CLINICAL HISTORY: F, Age 44 y/o , SCREENING FOR BREAST CANCER No family history. TECHNIQUE: Procedure Code: [id number] Modality: MG Procedure: SCRN MAMM (CAD)W/DISHA BILAT COMPARISON: Prior exam(s) dated February 18, 2024.. FINDINGS: TISSUE DENSITY: The breasts are heterogeneously dense, which may obscure small masses. Bilateral Breast Mammographic Findings: No significant masses, calcifications or other abnormalities are identified. Stable bilateral fat containing axillary lymph nodes. No suspicious masses, areas of developing architectural distortion, or suspicious calcifications. There has been no significant interval change. BI/SCRN MAMM (CAD)W/DISHA BILAT IMPRESSION: Stable bilateral screening mammogram. OVERALL FINAL ASSESSMENT BI-RADS 2: BENIGN RECOMMENDATION: Routine annual follow-up in 1 Year Additional Recommendation none A letter with findings and recommendations will be mailed to the patient. Reading Location: [facility]
== END | disposition home or self-care (01) ==
LOC: OPBI 15:30
PROVIDERS: PCP Family Medicine; Referring Provider Nurse Practitioner Women's Health; Visit Provider Nurse Practitioner Women's Health
DX: Z12.31 Encounter for screening mammogram for malignant neoplasm of breast (principal)
CPT/HCPCS: 77063; 77067